=== PATIENT | male | born 1965 | race Caucasian/White ===

== ENCOUNTER 2017-11-15 18:05 | Emergency (ER) | payer SELFPAY ==
[2017-11-15 19:22] LABS: ABSOLUTE BASOPHILS # (AUTO) 0.1 10^3/uL (0.0-0.2); ABSOLUTE EOSINOPHILS # (AUTO) 0.1 10^3/uL (0.0-0.6); ABSOLUTE LYMPHOCYTES (AUTO) 1.2 10^3/uL (0.5-4.7); ABSOLUTE NEUT (AUTO) 11.4 10^3/uL (1.7-8.2); BASOPHILS % (AUTO) 0.8 % (0-2); EOSINOPHILS % (AUTO) 0.7 % (0-6); HEMATOCRIT 29.5 % (37.9-51.0); LYMPHOCYTES % (AUTO) 8.7 % (13-45); MEAN CORPUSCULAR HEMOGLOBIN 33.8 pg (27.0-33.4); MEAN CORPUSCULAR HGB CONC 33.9 g/dL (32.0-36.0); MEAN CORPUSCULAR VOLUME 100 fl (80-97); MONOCYTES % (AUTO) 7.3 % (3-13); PLATELET COUNT 499 10^3/uL (150-450); RED BLOOD COUNT 2.96 10^6/uL (4.35-5.55); RED CELL DISTRIBUTION WIDTH 13.5 % (11.5-14.0); SEGMENTED NEUTROPHILS % (AUTO) 82.5 % (42-78); TOTAL CELLS COUNTED % (AUTO) 100 %; WHITE BLOOD COUNT 13.8 10^3/uL (4.0-10.5)
[2017-11-15 19:43] LABS: ALANINE AMINOTRANSFERASE 37 U/L (21-72); ALBUMIN 3.6 g/dL (3.5-5.0); ALKALINE PHOSPHATASE 108 U/L (38-126); ANION GAP 13 (5-19); ASPARTATE AMINO TRANSFERASE 24 U/L (17-59); BILIRUBIN,DIRECT 0.2 mg/dL (0.0-0.4); BILIRUBIN,TOTAL 0.3 mg/dL (0.2-1.3); BLOOD UREA NITROGEN 17 mg/dL (7-20); CALCIUM 9.3 mg/dL (8.4-10.2); CARBON DIOXIDE 24 mmol/L (22-30); CHLORIDE 102 mmol/L (98-107); CREATINE KINASE 36 U/L (55-170); GLUCOSE 98 mg/dL (75-110); POTASSIUM 3.9 mmol/L (3.6-5.0); SODIUM 138.7 mmol/L (137-145); TOTAL PROTEIN 6.3 g/dL (6.3-8.2)
[2017-11-15 19:54] LABS: CREATINE KINASE MB 0.55 ng/mL (<4.55); TROPONIN I 0.016 ng/mL
--- NOTE | 2017-11-15 20:19 | ER Document Report ---
ED Syncope and Near Syncope - General Chief Complaint: Near Syncope Stated Complaint: WEAKNESS Time Seen by Provider: 11/15/17 19:38 Notes: Patient is a 52-year-old male who presents emergency department with a chief complaint of syncope earlier today. His family at the bedside states that he is recently discharged from [facility] about a week and half ago and is trying to get back to his home activities and he was walking from his house to his dad' s house when he passed out for about 2-3 minutes. At this time he denies any headache, dizziness, chest pain, shortness of breath, cough, fever chills nausea , vomiting, abdominal pain, diarrhea, constipation, vision changes, numbness or tingling, back pain. Patient does have a very significant past medical history. Patient's initially had a STEMI on September 10 where he had a stent placed to [facility] at that time he was diagnosed with mouth cancer. States about 2 weeks ago he had a resection done by Dr. Price with ear nose and throat at [facility]. He was recently discharged a week and a half ago and has been home ever since. He states that he has been caring for the wound on his right thigh where they did a graft for his new tongue. He states that there has been purulent drainage from this area and it has been sore. He states the drainage started a couple of days after he left the hospital. He did follow up with Dr. Price is partner on Sunday and was referred to nutrition given his recent weight loss over the past couple months. Patient states that since his hospitalization for his heart attack is probably lost approximately 30-40 pounds. He is still not taking anything p.o. as his grafts heal any his primary source of nutrition his tube feeds. Patient states that he has not had a stress test and cath was done in September. 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 yanez, cylinder inspector and tester with He is due to follow-up with your nose and throat on Sunday and with his cylinder inspector and tester on December 20 His home medications include oxycodone 5 mg syrup, metoprolol 25 mg, nitro as needed, baby aspirin, lisinopril 2.5 mg daily, atorvastatin, Plavix 75 mg - Related Data Allergies/Adverse Reactions: No Known Allergies Allergy (Unverified 11/15/17 19:36) Home Medications: Current Home Medications Atorvastatin Calcium 80 mg PEG DAILY 11/16/17 [History] Chlorhexidine Gluconate [Peridex 0.12% Oral Rinse 60 ml] 15 ml MM BID 11/16/17 [ History] Clopidogrel Bisulfate [Clopidogrel] 75 mg PEG DAILY 11/16/17 [History] Lisinopril [Zestril] 2.5 mg PEG DAILY 11/16/17 [History] Metoprolol Tartrate 25 mg PEG BID 11/16/17 [History] Nitroglycerin [Nitrostat] 0.4 mg SL Q5MP PRN MDD 3 11/16/17 [History] Nutritional Supplement [Osmolite 1.5 Samuel] 237 ml PEG QID 11/16/17 [History] Oxycodone HCl 5 mg PEG 5XD 11/16/17 [History] Past Medical History - Social History Smoking Status: Former Smoker Drug Abuse: Marijuana Family History: Reviewed & Not Pertinent Patient has suicidal ideation: No Patient has homicidal ideation: No Renal/ Medical History: Denies: Hx Peritoneal Dialysis Review of Systems - Review of Systems Constitutional: No symptoms reported EENT: See HPI Cardiovascular: No symptoms reported Respiratory: No symptoms reported Gastrointestinal: No symptoms reported Musculoskeletal: See HPI Hematologic/Lymphatic: See HPI Neurological/Psychological: See HPI -: Yes All other systems reviewed and negative Physical Exam - Vital signs Vitals: Resp Pulse Ox 16 100 11/15/17 18:24 11/15/17 18:24 - Notes Notes: PHYSICAL EXAM GENERAL: Alert, interacts well. Thin cachectic HEAD: Normocephalic, atraumatic. EYES: Pupils equal, round, and reactive to light. Extraocular movements intact. ENT: Patient's airway is clear with tongue graft with epithelialization and no purulent drainage oral mucosa moist, tongue midline. NECK: Full range of motion. Supple. Trachea midline. Trach site healing well without any present drainage incision that extends from across is not covered in Dermabond without any tenderness, induration or cellulitis, dehiscence LUNGS: Clear to auscultation bilaterally, no wheezes, rales, or rhonchi. No respiratory distress. HEART: Regular rate and rhythm. No murmurs, gallops, or rubs. ABDOMEN: Soft, nondistended, nontender. No guarding, rebound, or rigidity.. Bowel sounds present in all 4 quadrants. EXTREMITIES: Moves all 4 extremities spontaneously. No edema, radial and dorsalis pedis pulses 2/4 bilaterally. No cyanosis. NEUROLOGICAL: Alert and oriented x4. Normal speech. PSYCH: Normal affect, normal mood. SKIN: Warm, dry, right thigh with incision from the ASIS down to just above the knee with some sutures still in place purulent drainage with palpation of the site and tenderness palpation no surrounding erythema. Course - Re-evaluation Re-evalutation: 11/05 11/22 020:30 Patient is a 52-year-old male who is hemodynamically stable, no acute distress and afebrile. EKG without any significant evidence of a STEMI. CBC with mild elevation of white blood cells and hemoglobin of 10 showing mild anemia. Chemistry stable with negative troponin. 11/16/17 00:30 patient's blood pressures in the 80s but he denies any dizziness, weakness. Orthostatics are negative. Patient to receive more IV fluids and we are waiting to hear from your nose and throat at [facility]. Given recent patient' s surgical history and hypertension will send for a CTA to rule out PE. We will also send a stool occult to rule out any GI bleed given anemia and hypotension. 11/16/17 03:30 CTA is negative for any evidence of a PE, stool occult was negative. Consult with ear nose and throat and [facility] still pending 11/16/17 04:30 Ear nose and throat credit relationship manager attending Dr. Pratt states that these labs are improved from his discharge. He was recently evaluated on Sunday. he has requested that at the bedside some sutures are removed and the wound cleaned and dry sterile dressing applied and will follow up with him in his clinic at 10 AM at [facility]. Patient's blood pressure has improved after another liter of fluid. Patient is able to ambulate in the department without any dizziness or weakness. He states that he is hungry and does want to go home so he can get a tube feed done before going down to [facility]. 11/16/17 07:39 Patients dad at the bedside reviewed with him the plan is agreeable to take him to [facility] at approximately 10 AM today. Discussed with him strict return precautions if they are not able to be evaluated by him/possible recommendation to stay in the emergency department as needed. - Vital Signs Vital signs: Temp Pulse Resp BP Pulse Ox 99 F 71 14 119/63 99 11/16/17 07:01 11/15/17 20:43 11/16/17 07:01 11/16/17 07:00 11/16/17 07:01 - Laboratory Result Diagrams: 11/15/17 18:50 11/15/17 18:50 Laboratory results interpreted by me: 11/15/17 11/15/17 11/15/17 18:50 18:50 20:35 WBC 13.8 H RBC 2.96 L Hgb 10.0 L Hct 29.5 L MCV 100 H MCH 33.8 H Plt Count 499 H Seg Neutrophils % 82.5 H Lymphocytes % 8.7 L Absolute Neutrophils 11.4 H Lactic Acid Creatine Kinase 36 L Urine Ketones 20 H Urine Urobilinogen 2.0 H Ur Leukocyte Esterase TRACE H Urine Ascorbic Acid 40 H 11/16/17 01:48 WBC RBC Hgb Hct MCV MCH Plt Count Seg Neutrophils % Lymphocytes % Absolute Neutrophils Lactic Acid 0.6 L Creatine Kinase Urine Ketones Urine Urobilinogen Ur Leukocyte Esterase Urine Ascorbic Acid - Diagnostic Test Radiology reviewed: Image reviewed, Reports reviewed - EKG Interpretation by Me EKG shows normal: Sinus rhythm Rate: Normal Rhythm: NSR When compared to previous EKG there are: Previous EKG unavailable Discharge - Discharge Clinical Impression: Syncope Qualifiers: Syncope type: unspecified Qualified Code(s): R55 - Syncope and collapse Wound infection after surgery Qualifiers: Encounter type: initial encounter Qualified Code(s): T81.4XXA - Infection following a procedure, initial encounter Condition: Stable Disposition: HOME, SELF-CARE Instructions: Syncopal Episode ([facility]) Additional Instructions: Your leg is concerning for infection. You need to follow up with Dr. Pratt with [facility] ear, nose and throat surgery today at 10am in [place] regarding your visit to the ER
[2017-11-15 21:29] LABS: APPEARANCE,URINE SLIGHTLY-CLOUDY; BILIRUBIN,URINE NEGATIVE (NEGATIVE); COLOR,URINE AMBER; GLUCOSE, URINE NEGATIVE (NEGATIVE); KETONES,URINE 20 mg/dL (NEGATIVE); LEUKOCYTE ESTERASE,URINE TRACE (NEGATIVE); NITRITE,URINE NEGATIVE (NEGATIVE); PROTEIN,URINE NEGATIVE (NEGATIVE); URINE SPECIFIC GRAVITY 1.029
[2017-11-16] MEDS ORDERED: NORMAL SALINE 1000 ML 1,000 ML IV ONE ×3 (00:45→04:30)
--- NOTE | 2017-11-16 03:26 | RADIOLOGY REPORT (SQ) ---
EXAM DESCRIPTION: CTA of the chest per PE protocol with contrast. CLINICAL HISTORY: hypotension, recent surgery COMPARISON: None Available. TECHNIQUE: CTA of the chest obtained following the uncomplicated intravenous administration of iodinated contrast. 3-D/MIP reformatted images of the chest available for evaluation. FINDINGS: Chest: Mediastinal windows demonstrate an excellent contrast bolus. No pulmonary embolus identified. Visualized thyroid gland is unremarkable. Great vessels have normal anatomic configuration. No cardiomegaly, coronary artery atherosclerosis, or significant pericardial effusion. No abnormalities of the esophagus. Scattered mediastinal lymph nodes are not enlarged by CT criteria. Lung windows demonstrate no consolidation, pneumothorax, or pleural effusion. Minimal bilateral dependent atelectasis. No abnormalities of the visualized trachea or airways. Limited images of the upper abdomen demonstrate no abnormalities of the visualized liver, spleen, pancreas, adrenal glands, gallbladder, or kidneys. No destructive osseous lesions. DLP: 462.35 mGycm IMPRESSION: 1. No pulmonary embolus identified. This exam was performed according to our departmental dose-optimization program, which includes automated exposure control, adjustment of the mA and/or kV according to patient size and/or use of iterative reconstruction technique.
[2017-11-16 07:25] VITALS: BP 119/63
--- NOTE | 2017-11-16 07:56 | EKG REPORT ---
SEVERITY:- BORDERLINE ECG - SINUS RHYTHM BORDERLINE T ABNORMALITIES, DIFFUSE LEADS : Confirmed by: Steve Higgins MD 16-Nov-2017 07:55:42
== END 2017-11-16 07:20 | disposition home or self-care (01) ==
LOC: ER 18:05
DX: R55 Syncope and collapse (principal); T81.4XXA Infection following a procedure, initial encounter; Y83.6 Removal of other organ (partial) (total) as the cause of abnormal reaction of the patient, or of later complication, without mention of misadventure at the time of the procedure; D64.9 Anemia, unspecified; I25.10 Atherosclerotic heart disease of native coronary artery without angina pectoris; I10 Essential (primary) hypertension; E78.5 Hyperlipidemia, unspecified; I25.2 Old myocardial infarction; F12.10 Cannabis abuse, uncomplicated; Z87.891 Personal history of nicotine dependence; Z79.899 Other long term (current) drug therapy; Z79.02 Long term (current) use of antithrombotics/antiplatelets; Z79.82 Long term (current) use of aspirin; Z95.5 Presence of coronary angioplasty implant and graft; Z90.09 Acquired absence of other part of head and neck; Z85.819 Personal history of malignant neoplasm of unspecified site of lip, oral cavity, and pharynx; Z48.02 Encounter for removal of sutures
CPT/HCPCS: 93005; 99285; 96360; 96361; 36415; 87040; 87070; 87205; 82553; 82550; 85025; 82272; 87077; 80053; 81001; 84484; 87186; 83605; 71275; 93010; J7030

== ENCOUNTER 2018-07-29 19:11 | Emergency (ER) | payer MEDICAID ==
[2018-07-29 19:21] VITALS: BP 110/64
[2018-07-29] MEDS ORDERED: RINGERS SOLUTION,LACTATED 1,000 ML IV ONE (21:08)
--- NOTE | 2018-07-29 21:09 | ER Document Report ---
ED General - General Chief Complaint: Low Blood Pressure Stated Complaint: POSSIBLE SYNCOPE Time Seen by Provider: 07/29/18 20:58 Mode of Arrival: Wheelchair Information source: Patient Notes: Patient is a 53 year old male with oral cancer presents to the emergency department via EMS due to a near syncopal event. Patient states he has been feeling fatigued and weak today and when walking from his bedroom he fell to the floor. Daughter at bedside states she saw him fall and reports the patient was unresponsive and his eyes rolled to the back of his head. Patient states he had a similar episode in the 3-4 months ago and reported his blood sugar was low then. EMS reports a blood pressure of 58 palpated and heart rate of 46 and proceeded to give 700ml normal saline which improved the blood pressure to 111/75. Patient also mentions having some mouth pain and not taking his blood thinner medication for approximately 1 week. He states he has only been treated with radiation with his last treatment being in January 2018. GENERAL: Alert, appears cachetic. HEAD: Normocephalic, Atraumatic. NECK: Full range of motion. Supple. Trachea midline. LUNGS: Clear to auscultation bilaterally, no wheezes, rales, or rhonchi. No respiratory distress. HEART: Regular rate and rhythm. No murmurs, gallops, or rubs. ABDOMEN: Soft, non-tender. Non-distended. Bowel sounds present in all 4 quadrants. EXTREMITIES: Moves all four extremities spontaneously. PSYCH: Normal affect, normal mood. I have greeted and performed a rapid initial assessment of this patient. A comprehensive ED assessment and evaluation of the patient, analysis of test results and completion of the medical decision making process will be conducted by additional ED providers. TRAVEL OUTSIDE OF THE [place] IN LAST 30 DAYS: No - Related Data Allergies/Adverse Reactions: No Known Allergies Allergy (Verified 07/29/18 19:13) Past Medical History - Social History Smoking Status: Current Every Day Smoker Chew tobacco use (# tins/day): No Frequency of alcohol use: Social Drug Abuse: None Family History: Reviewed & Not Pertinent Patient has suicidal ideation: No Patient has homicidal ideation: No - Past Medical History Cardiac Medical History: Reports: Hx Heart Attack, Hx Hypertension Renal/ Medical History: Denies: Hx Peritoneal Dialysis Past Surgical History: Reports: Hx Oral Surgery - Tongue cancer removed, Hx Vascular Surgery - Stents Physical Exam - Vital signs Vitals: Temp Pulse Resp BP Pulse Ox 97.3 F 72 16 110/64 99 07/29/18 19:19 07/29/18 19:19 07/29/18 19:19 07/29/18 19:19 07/29/18 19:19 Course - Vital Signs Vital signs: Temp Pulse Resp BP Pulse Ox 97.3 F 72 16 110/64 99 07/29/18 19:19 07/29/18 19:19 07/29/18 19:19 07/29/18 19:19 07/29/18 19:19 Discharge - Discharge Referrals: WARNER MAURICIO PA-C [Primary Care Provider] - Follow up as needed
[2018-07-29] MEDS ORDERED: NORMAL SALINE INJ/PF 0.9% 10 ML SDV IV ONE (21:13)
[2018-07-29 21:38] LABS: HEMATOCRIT 38.4 % (37.9-51.0); HEMOGLOBIN 13.4 g/dL (13.5-17.0); MEAN CORPUSCULAR HEMOGLOBIN 35.3 pg (27.0-33.4); MEAN CORPUSCULAR HGB CONC 34.8 g/dL (32.0-36.0); MEAN CORPUSCULAR VOLUME 102 fl (80-97); PLATELET COUNT 333 10^3/uL (150-450); RED BLOOD COUNT 3.79 10^6/uL (4.35-5.55); RED CELL DISTRIBUTION WIDTH 12.5 % (11.5-14.0); WHITE BLOOD COUNT 12.5 10^3/uL (4.0-10.5)
[2018-07-29 21:43] LABS: APPEARANCE,URINE SLIGHTLY-CLOUDY; BILIRUBIN,URINE NEGATIVE (NEGATIVE); COLOR,URINE YELLOW; GLUCOSE, URINE NEGATIVE (NEGATIVE); KETONES,URINE TRACE mg/dL (NEGATIVE); LEUKOCYTE ESTERASE,URINE NEGATIVE (NEGATIVE); NITRITE,URINE NEGATIVE (NEGATIVE); PROTEIN,URINE 30 mg/dL (NEGATIVE); URINE SPECIFIC GRAVITY 1.017; UROBILINOGEN,URINE NEGATIVE mg/dL (<2.0)
[2018-07-29 21:47] LABS: INTERNATIONAL RATION (INR) 0.96; PROTHROMBIN TIME 13.3 SEC (11.4-15.4)
--- NOTE | 2018-07-29 21:54 | EKG REPORT ---
SEVERITY:- ABNORMAL ECG - SINUS RHYTHM NONSPECIFIC T ABNORMALITIES, DIFFUSE LEADS : Confirmed by: Bianka Ferraro MD 29-Jul-2018 21:54:05
[2018-07-29 22:01] LABS: ALANINE AMINOTRANSFERASE 33 U/L (21-72); ALBUMIN 3.5 g/dL (3.5-5.0); ALKALINE PHOSPHATASE 96 U/L (38-126); ASPARTATE AMINO TRANSFERASE 26 U/L (17-59); BILIRUBIN,DIRECT 0.5 mg/dL (0.0-0.4); BILIRUBIN,TOTAL 0.6 mg/dL (0.2-1.3); BLOOD UREA NITROGEN 15 mg/dL (7-20); CALCIUM 9.1 mg/dL (8.4-10.2); GLUCOSE 112 mg/dL (75-110); POTASSIUM 4.5 mmol/L (3.6-5.0); TOTAL PROTEIN 6.5 g/dL (6.3-8.2)
--- NOTE | 2018-07-29 22:01 | ER Document Report ---
ED Medical Screen (RME) - General Chief Complaint: Low Blood Pressure Stated Complaint: POSSIBLE SYNCOPE Time Seen by Provider: 07/29/18 20:58 Mode of Arrival: Wheelchair Information source: Patient Notes: Patient is a 53 year old male with oral cancer presents to the emergency department via EMS due to a near syncopal event. Patient states he has been feeling fatigued and weak today and when walking from his bedroom he fell to the floor. Daughter at bedside states she saw him fall and reports the patient was unresponsive and his eyes rolled to the back of his head. Patient states he had a similar episode in the 3-4 months ago and reported his blood sugar was low then. Patient denies vomiting, diarrhea, chest pain or recent illnesses. EMS reports a blood pressure of 58 palpated and heart rate of 46 and proceeded to give 700ml normal saline which improved the blood pressure to 111/75. Patient also mentions having some mouth pain and not taking his blood thinner medication for approximately 1 week. He states he has only been treated with radiation with his last treatment being in January 2018. GENERAL: Alert, appears cachetic. HEAD: Normocephalic, Atraumatic. NECK: Full range of motion. Supple. Trachea midline. LUNGS: Clear to auscultation bilaterally, no wheezes, rales, or rhonchi. No respiratory distress. HEART: Regular rate and rhythm. No murmurs, gallops, or rubs. ABDOMEN: Soft, non-tender. Non-distended. Bowel sounds present in all 4 quadrants. EXTREMITIES: Moves all four extremities spontaneously. PSYCH: Normal affect, normal mood. I have greeted and performed a rapid initial assessment of this patient. A comprehensive ED assessment and evaluation of the patient, analysis of test results and completion of the medical decision making process will be conducted by additional ED providers. TRAVEL OUTSIDE OF THE [place] IN LAST 30 DAYS: No - Related Data Allergies/Adverse Reactions: No Known Allergies Allergy (Verified 07/29/18 19:13) Past Medical History - General Information source: Patient - Social History Chew tobacco use (# tins/day): No Frequency of alcohol use: Social Drug Abuse: None - Past Medical History Cardiac Medical History: Reports: Hx Heart Attack, Hx Hypertension Past Surgical History: Reports: Hx Oral Surgery - Tongue cancer removed, Hx Vascular Surgery - Stents Physical Exam - Vital signs Vitals: Temp Pulse Resp BP Pulse Ox 97.3 F 72 16 110/64 99 07/29/18 19:19 07/29/18 19:19 07/29/18 19:19 07/29/18 19:19 07/29/18 19:19 Course - Vital Signs Vital signs: Temp Pulse Resp BP Pulse Ox 97.3 F 72 16 110/64 99 07/29/18 19:19 07/29/18 19:19 07/29/18 19:19 07/29/18 19:19 07/29/18 19:19 - Laboratory Result Diagrams: 07/29/18 21:25 07/29/18 21:25 Laboratory results interpreted by me: 07/29/18 07/29/18 21:25 21:25 WBC 12.5 H RBC 3.79 L Hgb 13.4 L MCV 102 H MCH 35.3 H Seg Neuts % (Manual) 83 H Lymphocytes % (Manual) 7 L Abs Neuts (Manual) 10.4 H Urine Protein 30 H Urine Ketones TRACE H Urine Ascorbic Acid 40 H Doctor's Discharge - Discharge Referrals: WARNER MAURICIO PA-C [Primary Care Provider] - Follow up as needed
[2018-07-29 22:05] LABS: ABSOLUTE LYMPHOCYTES# (MANUAL) 0.9 10^3/uL (0.5-4.7); ABSOLUTE MONOCYTES # (MANUAL) 0.9 10^3/uL (0.1-1.4); ABSOLUTE NEUTROPHILS# (MANUAL) 10.4 10^3/uL (1.7-8.2); BASOPHILS % (MANUAL) 0 % (0-2); EOSINOPHILS % (MANUAL) 3 % (0-6); LYMPHOCYTES % (MANUAL) 7 % (13-45); MONOCYTES % (MANUAL) 7 % (3-13); PLATELET COMMENT ADEQUATE; RBC MORPHOLOGY COMMENT NORMO-CYTIC/CHROMIC; SEGMENTED NEUTROPHILS % (MAN) 83 % (42-78); TOTAL CELLS COUNTED 100
[2018-07-29 22:08] LABS: ANION GAP 5 (5-19); CARBON DIOXIDE 27 mmol/L (22-30); CHLORIDE 103 mmol/L (98-107)
--- NOTE | 2018-07-29 22:41 | ER Document Report ---
ED General - General TRAVEL OUTSIDE OF THE [place] IN LAST 30 DAYS: No <LISY MADRIGAL - Last Filed: 07/29/18 22:56> <ORLANDO VARGAS - Last Filed: 07/30/18 14:41> - General Chief Complaint: Low Blood Pressure Stated Complaint: POSSIBLE SYNCOPE Time Seen by Provider: 07/29/18 20:58 Notes: Patient is a 53 year old male with oral cancer presents to the emergency department via EMS due to a near syncopal event. Patient states he has been feeling fatigued and weak today and when walking from his bedroom he fell to the floor. Daughter at bedside states she saw him fall and reports the patient' s eyes rolled to the back of his head and he would not respond to any auditory stimuli further stating the patient did not fully loose consciousness. Patient states he had a similar episode the 3-4 months ago and reported his blood sugar was low then. Patient denies vomiting, diarrhea, chest pain or recent illnesses. EMS reports a blood pressure of 58 palpated and heart rate of 46 and proceeded to give 700ml normal saline which improved the blood pressure to 111/75. Patient also mentions having some mouth pain and not taking his blood thinner medication for approximately 1 week. He states he has only been treated with radiation with his last treatment being in January 2018. (LISY MADRIGAL) - Related Data Allergies/Adverse Reactions: No Known Allergies Allergy (Verified 07/29/18 19:13) Past Medical History - Social History Smoking Status: Current Every Day Smoker Chew tobacco use (# tins/day): No Frequency of alcohol use: Social Drug Abuse: None Family History: Reviewed & Not Pertinent Patient has suicidal ideation: No Patient has homicidal ideation: No - Past Medical History Cardiac Medical History: Reports: Hx Heart Attack, Hx Hypertension Renal/ Medical History: Denies: Hx Peritoneal Dialysis Past Surgical History: Reports: Hx Oral Surgery - Tongue cancer removed, Hx Vascular Surgery - Stents <LISY MADRIGAL - Last Filed: 07/29/18 22:56> Review of Systems - Review of Systems Constitutional: See HPI EENT: No symptoms reported Cardiovascular: See HPI Respiratory: No symptoms reported Gastrointestinal: No symptoms reported Genitourinary: No symptoms reported Male Genitourinary: No symptoms reported Musculoskeletal: No symptoms reported Skin: No symptoms reported Hematologic/Lymphatic: No symptoms reported Neurological/Psychological: No symptoms reported -: Yes All other systems reviewed and negative <LISY MADRIGAL - Last Filed: 07/29/18 22:56> Physical Exam <LISY MADRIGAL - Last Filed: 07/29/18 22:56> <ORLANDO VARGAS Marcos - Last Filed: 07/30/18 14:41> - Vital signs Vitals: Temp Pulse Resp BP Pulse Ox 97.3 F 72 16 110/64 99 07/29/18 19:19 07/29/18 19:19 07/29/18 19:19 07/29/18 19:19 07/29/18 19:19 - Notes Notes: GENERAL: Alert, appears cachetic. HEAD: Normocephalic, Atraumatic. NECK: Full range of motion. Supple. Trachea midline. LUNGS: Clear to auscultation bilaterally, no wheezes, rales, or rhonchi. No respiratory distress. HEART: Regular rate and rhythm. No murmurs, gallops, or rubs. ABDOMEN: Soft, non-tender. Non-distended. Bowel sounds present in all 4 quadrants. EXTREMITIES: Moves all four extremities spontaneously. PSYCH: Normal affect, normal mood. . (LISY MADRIGAL) Course - Laboratory Result Diagrams: 07/29/18 21:25 07/29/18 21:25 <LISY MADRIGAL - Last Filed: 07/29/18 22:56> - Laboratory Result Diagrams: 07/29/18 21:25 07/29/18 21:25 - EKG Interpretation by Me EKG shows normal: Sinus rhythm Rate: Normal Rhythm: NSR - No significant changes from 11/2017. <ORLANDO VARGAS Marcos - Last Filed: 07/30/18 14:41> - Re-evaluation Re-evalutation: 07/29/18 22:40 Patient stated he felt better and would like to go home. (LISY MADRIGAL) 07/29/18 22:42 Went on into triage and discussed with patient labs all within normal limits nonsignificant well is no changes in EKG from previous. Patient states that he has had these type of episodes in the past. He states that he is feeld better after his fluids. He did have dry oral mucous membrane upon arrival. I advised patient to continue to take his tube feedings as prescribed by his physician as well as encourage oral hydration with liquids. I also advised he needs to take all of his medications as prescribed, including his Plavix. I suspect patient suffering dehydration as his blood pressure normalized with fluids. His troponin was negative and he denied any chest pain at any time at home or in the ED. Due to multiple medical probelems I did discuss consideration of inpatient observation, but patient declined. 07/30/18 14:39 (ORLANDO VARGAS) - Vital Signs Vital signs: Temp Pulse Resp BP Pulse Ox 97.3 F 72 16 110/64 99 07/29/18 19:19 07/29/18 19:19 07/29/18 19:19 07/29/18 19:19 07/29/18 19:19 - Laboratory Laboratory results interpreted by me: 07/29/18 07/29/18 07/29/18 21:25 21:25 21:25 WBC 12.5 H RBC 3.79 L Hgb 13.4 L MCV 102 H MCH 35.3 H Seg Neuts % (Manual) 83 H Lymphocytes % (Manual) 7 L Abs Neuts (Manual) 10.4 H Sodium 135.0 L Glucose 112 H Direct Bilirubin 0.5 H Urine Protein 30 H Urine Ketones TRACE H Urine Ascorbic Acid 40 H Discharge <LISY MADRIGAL - Last Filed: 07/29/18 22:56> <ORLANDO VARGAS - Last Filed: 07/30/18 14:41> - Discharge Condition: Good Disposition: HOME, SELF-CARE Instructions: Dehydration ([facility]), Near Syncopal Episode ([facility]) Referrals: WARNER MAURICIO PA-C [Primary Care Provider] - Follow up as needed (In 2-3 days for re-evaluation) Scribe Attestation: 07/30/18 14:41 I personally performed the services described in the documentation, reviewed and edited the documentation which was dictated to the scribe in my presence, and it accurately records my words and actions. (ORLANDO VARGAS) Scribe Documentation - Scribe Written by Dedrick:: Dedrick Ferreira, 07/29/2018 22:49 acting as scribe for :: Gabriel <LISY MADRIGAL - Last Filed: 07/29/18 22:56>
== END 2018-07-29 23:16 | disposition home or self-care (01) ==
LOC: ER 19:11
DX: R55 Syncope and collapse (principal); R53.83 Other fatigue; K13.79 Other lesions of oral mucosa; F17.200 Nicotine dependence, unspecified, uncomplicated; I25.2 Old myocardial infarction; I10 Essential (primary) hypertension
CPT/HCPCS: 36415; 80053; 81001; 83735; 84484; 85025; 85610; 93005; 93010; 99285

== ENCOUNTER 2018-08-06 21:06 | Emergency (ER) | payer MEDICAID ==
[2018-08-06] MEDS ORDERED: NORMAL SALINE 1000 ML 1,000 ML IV ONE (21:41)
[2018-08-06 22:06] LABS: ABSOLUTE BASOPHILS # (AUTO) 0.1 10^3/uL (0.0-0.2); ABSOLUTE EOSINOPHILS # (AUTO) 0.1 10^3/uL (0.0-0.6); ABSOLUTE LYMPHOCYTES (AUTO) 0.6 10^3/uL (0.5-4.7); ABSOLUTE NEUT (AUTO) 10.6 10^3/uL (1.7-8.2); EOSINOPHILS % (AUTO) 0.9 % (0-6); HEMATOCRIT 36.8 % (37.9-51.0); HEMOGLOBIN 12.8 g/dL (13.5-17.0); LYMPHOCYTES % (AUTO) 5.1 % (13-45); MEAN CORPUSCULAR HEMOGLOBIN 35.1 pg (27.0-33.4); MEAN CORPUSCULAR HGB CONC 34.8 g/dL (32.0-36.0); MEAN CORPUSCULAR VOLUME 101 fl (80-97); MONOCYTES % (AUTO) 8.2 % (3-13); PLATELET COUNT 325 10^3/uL (150-450); RED BLOOD COUNT 3.65 10^6/uL (4.35-5.55); SEGMENTED NEUTROPHILS % (AUTO) 84.8 % (42-78); TOTAL CELLS COUNTED % (AUTO) 100 %; WHITE BLOOD COUNT 12.6 10^3/uL (4.0-10.5)
--- NOTE | 2018-08-06 22:22 | RADIOLOGY REPORT (SQ) ---
PROCEDURE: XR CHEST 1 VIEW HISTORY: syncope COMPARISON: None TECHNIQUE: The study was done on 08/06/2018 at 9:52 PM Single projection of the chest was done. FINDINGS: There are underlying changes of COPD . There are no discrete airspace infiltrates, pneumothoraces or pleural effusions. The pulmonary vascularity is normal. The cardiomediastinal silhouette is unremarkable for patient's age and sex. IMPRESSION: There is no acute pleural-parenchymal process seen in the imaged lung rob. Location of Interpretation: [facility]
[2018-08-06] MEDS ORDERED: LIDOCAINE 2% VISCOUS SOLN 20 ML UDCUP PO ONE (22:25)
[2018-08-06 22:30] LABS: ALANINE AMINOTRANSFERASE 38 U/L (21-72); ALBUMIN 3.4 g/dL (3.5-5.0); ALKALINE PHOSPHATASE 108 U/L (38-126); ANION GAP 7 (5-19); ASPARTATE AMINO TRANSFERASE 30 U/L (17-59); BILIRUBIN,DIRECT 0.3 mg/dL (0.0-0.4); BILIRUBIN,TOTAL 0.5 mg/dL (0.2-1.3); BLOOD UREA NITROGEN 19 mg/dL (7-20); CALCIUM 8.9 mg/dL (8.4-10.2); CARBON DIOXIDE 26 mmol/L (22-30); CHLORIDE 105 mmol/L (98-107); CREATINE KINASE 29 U/L (55-170); GLUCOSE 115 mg/dL (75-110); SODIUM 138.2 mmol/L (137-145); TOTAL PROTEIN 6.3 g/dL (6.3-8.2)
[2018-08-06 22:45] LABS: TROPONIN I < 0.012 ng/mL
--- NOTE | 2018-08-06 23:11 | ER Document Report ---
ED General - General Chief Complaint: Passed Out Prior to Arrival Stated Complaint: SYNCOPE Time Seen by Provider: 08/06/18 21:10 Notes: Patient is a 53-year-old male that presents to the emergency department for chief complaint of syncopal episode. Patient states that just prior to ED arrival, the patient was walking in the living room, and started feeling lightheaded and had mild nausea, and then had a syncopal episode. Family was there, he did not strike his head, he slowly went down. He had an episode similar to this about a week ago, he was seen in the emergency department at that time and discharged home. Patient has been having lower blood pressures, and at that time he was hypotensive when EMS arrived and bradycardic. Patient has had weight loss, due to decreased p.o. intake, he does have a PEG tube, which he has not been giving himself the full amount of tube feed which she is supposed to receive. He supposed to be getting 6 cans daily, but has only been giving himself 4 cans, and thus having a decreased amount of water flushes as well. And he has been continued to take his normal blood pressure medication at its dose. He does take metoprolol 25 mg twice daily. He has a history of oral cancer, and that is why he has the PEG tube. Past Medical History: Oral carcinoma, status post tongue resection Past Surgical History: Tongue resection, and flap replacement Social History: Admits to smoking cigarettes, denies alcohol or drug use. Family History: Reviewed and noncontributory for presenting illness Allergies: Reviewed, see documented allergy list. REVIEW OF SYSTEMS: Unless otherwise stated in this report the patient's positive and negative responses for review of systems for constitutional, eyes, ENT, cardiovascular, respiratory, gastrointestinal, neurological, genitourinary, musculoskeletal, and integumentary systems and related systems to the presenting problem are either as stated in the HPI or were not pertinent or were negative for the symptoms and/or complaints related to the presenting medical problem. PHYSICAL EXAMINATION: Vital signs reviewed, nursing noted reviewed. GENERAL: Frail appearing male, no acute distress HEAD: Atraumatic, normocephalic. EYES: Eyes appear normal, extraocular movements intact, sclera anicteric, conjunctiva are normal. ENT: nares patent, oropharynx clear without exudates. Dry mucous membranes NECK: Normal range of motion, supple without lymphadenopathy LUNGS: Breath sounds clear to auscultation bilaterally and equal. No wheezes rales or rhonchi. HEART: Regular rate and rhythm without murmurs ABDOMEN: Soft, PEG tube in place, no erythema or evidence of infection, nontender, normoactive bowel sounds. No rebound, guarding, or rigidity. No masses appreciated. EXTREMITIES: Nontender, good range of motion, no pitting or edema. NEUROLOGICAL: No focal neurological deficits. Moves all extremities spontaneously Motor and sensory grossly intact on exam. PSYCH: Normal mood, normal affect. SKIN: Warm, Dry, normal turgor, no rashes or lesions noted on exposed skin TRAVEL OUTSIDE OF THE [place] IN LAST 30 DAYS: No - Related Data Allergies/Adverse Reactions: No Known Allergies Allergy (Verified 07/29/18 19:13) Past Medical History - Social History Smoking Status: Unknown if Ever Smoked Family History: Reviewed & Not Pertinent Patient has suicidal ideation: No Patient has homicidal ideation: No - Past Medical History Cardiac Medical History: Reports: Hx Heart Attack, Hx Hypertension Renal/ Medical History: Denies: Hx Peritoneal Dialysis Past Surgical History: Reports: Hx Oral Surgery - Tongue cancer removed, Hx Vascular Surgery - Stents Physical Exam - Vital signs Vitals: Pulse Ox 96 08/06/18 21:16 Course - Re-evaluation Re-evalutation: Patient seen and examined vital signs reviewed. Laboratory data and imaging were ordered as appropriate for the patient's presenting symptoms and complaint, with consideration of any critical or life threatening conditions that may be associated with their obtained history and exam as noted above. Patient was treated with IV fluids, given viscous lidocaine for his mouth Results were reviewed when available and demonstrated troponin, EKG was unchanged, chest x-ray negative, anemia at his baseline, he did have a mild leukocytosis, no evidence of infection The patient was re-evaluated and was stable, blood pressure was borderline, 116 systolic, I discussed at length with him, that he needs to give himself the scheduled and prescribed tube feedings, and he needs a follow-up with oral surgeon this upcoming , so advised that he needs to decrease his blood pressure medication to 12-1/2 mg twice daily with his metoprolol, as I think this is contributing to the patient's syncopal episodes. Evaluation was most consistent with syncopal episode, orthostasis most likely cause Results were discussed with the patient at this point, after careful consideration I feel that that patient can be discharged from the emergency department, the patient was educated treatments and reasons to return to the emergency department based on their presumed diagnosis as noted above, they were advised to followup with a primary care physician in 2-3 days. Patient was agreeable to plan of care. *Note is created using voice recognition software and may contain spelling, syntax or grammatical errors. Laboratory 08/06/18 08/06/18 08/06/18 21:55 21:55 21:55 WBC 12.6 H RBC 3.65 L Hgb 12.8 L Hct 36.8 L MCV 101 H MCH 35.1 H MCHC 34.8 RDW 12.0 Plt Count 325 Seg Neutrophils % 84.8 H Lymphocytes % 5.1 L Monocytes % 8.2 Eosinophils % 0.9 Basophils % 1.0 Absolute Neutrophils 10.6 H Absolute Lymphocytes 0.6 Absolute Monocytes 1.0 Absolute Eosinophils 0.1 Absolute Basophils 0.1 Sodium 138.2 Potassium 4.0 Chloride 105 Carbon Dioxide 26 Anion Gap 7 BUN 19 Creatinine 0.61 Est GFR ( Amer) > 60 Est GFR (Non-Af Amer) > 60 Glucose 115 H Calcium 8.9 Total Bilirubin 0.5 Direct Bilirubin 0.3 Neonat Total Bilirubin Not Reportable Neonat Direct Bilirubin Not Reportable Neonat Indirect Bili Not Reportable AST 30 ALT 38 Alkaline Phosphatase 108 Creatine Kinase 29 L CK-MB (CK-2) 1.20 Troponin I < 0.012 Total Protein 6.3 Albumin 3.4 L Chest X-Ray 08/06/18 21:40 IMPRESSION: There is no acute pleural-parenchymal process seen in the imaged lung rob. Location of Interpretation: Teleradiology - Vital Signs Vital signs: Temp Pulse Resp BP Pulse Ox 98 F 13 105/63 100 08/06/18 21:17 08/06/18 23:01 08/06/18 23:01 08/06/18 23:01 - Laboratory Result Diagrams: 08/06/18 21:55 08/06/18 21:55 Laboratory results interpreted by me: 08/06/18 08/06/18 21:55 21:55 WBC 12.6 H RBC 3.65 L Hgb 12.8 L Hct 36.8 L MCV 101 H MCH 35.1 H Seg Neutrophils % 84.8 H Lymphocytes % 5.1 L Absolute Neutrophils 10.6 H Glucose 115 H Creatine Kinase 29 L Albumin 3.4 L - EKG Interpretation by Me Additional EKG results interpreted by me: EKG demonstrates sinus rhythm with a ventricular rate of 81 bpm, normal axis, normal intervals, there is T wave flattening in leads I, aVL and aVF, this compared with prior EKG from 07/29/2018, without significant change. Discharge - Discharge Clinical Impression: Syncope Qualifiers: Syncope type: unspecified Qualified Code(s): R55 - Syncope and collapse Condition: Stable Disposition: HOME, SELF-CARE Instructions: Syncopal Episode ([facility]) Additional Instructions: Please return to the emergency department if you have any worsening, or concern of your symptoms. Please return to the emergency department if you develop chest pain, difficulty breathing, severe abdominal pain, or ongoing vomiting. Please follow-up with your primary care physician in 2-3 days and any other recommended physicians. If prescribed, take all medications as directed. If you have any questions or concerns do not hesitate to return the emergency department for evaluation. Please cut your metoprolol dosing in half to 12.5 mg twice daily. Please follow -up with your primary care physician, and keep your appointment on in [place]. Please use the 6 cans of tube feed daily, as directed before, and continue your free water flushes as previously directed of 120 mL's total with each tube feed. Referrals: [facility] [Provider Group] - Follow up as needed
[2018-08-06 23:18] VITALS: BP 105/63
--- NOTE | 2018-08-07 11:12 | EKG REPORT ---
SEVERITY:- BORDERLINE ECG - SINUS RHYTHM BORDERLINE T ABNORMALITIES, ANT-LAT LEADS : Confirmed by: Bree Roth 07-Aug-2018 11:11:12
== END 2018-08-06 23:40 | disposition home or self-care (01) ==
LOC: ER 21:06
DX: R55 Syncope and collapse (principal); R11.0 Nausea; I10 Essential (primary) hypertension; I25.2 Old myocardial infarction; Z85.810 Personal history of malignant neoplasm of tongue; Z93.4 Other artificial openings of gastrointestinal tract status
CPT/HCPCS: 93005; 99284; 96360; 36415; 82553; 82550; 85025; 80053; 84484; 71045; 93010; J3490

== ENCOUNTER 2018-08-27 20:58 | Observation (INO) | payer MEDICAID ==
[2018-08-27 21:38] LABS: ABSOLUTE EOSINOPHILS # (AUTO) 0.1 10^3/uL (0.0-0.6); ABSOLUTE LYMPHOCYTES (AUTO) 0.6 10^3/uL (0.5-4.7); ABSOLUTE MONOCYTES (AUTO) 0.6 10^3/uL (0.1-1.4); ABSOLUTE NEUT (AUTO) 9.1 10^3/uL (1.7-8.2); BASOPHILS % (AUTO) 0.3 % (0-2); EOSINOPHILS % (AUTO) 0.5 % (0-6); HEMATOCRIT 35.1 % (37.9-51.0); HEMOGLOBIN 12.5 g/dL (13.5-17.0); LYMPHOCYTES % (AUTO) 5.5 % (13-45); MEAN CORPUSCULAR HEMOGLOBIN 35.1 pg (27.0-33.4); MEAN CORPUSCULAR HGB CONC 35.8 g/dL (32.0-36.0); MEAN CORPUSCULAR VOLUME 98 fl (80-97); PLATELET COUNT 363 10^3/uL (150-450); RED BLOOD COUNT 3.58 10^6/uL (4.35-5.55); RED CELL DISTRIBUTION WIDTH 11.9 % (11.5-14.0); SEGMENTED NEUTROPHILS % (AUTO) 87.7 % (42-78); TOTAL CELLS COUNTED % (AUTO) 100 %; WHITE BLOOD COUNT 10.4 10^3/uL (4.0-10.5)
[2018-08-27 21:49] LABS: ALANINE AMINOTRANSFERASE 34 U/L (21-72); ALBUMIN 3.3 g/dL (3.5-5.0); ALKALINE PHOSPHATASE 99 U/L (38-126); ANION GAP 7 (5-19); ASPARTATE AMINO TRANSFERASE 26 U/L (17-59); BILIRUBIN,DIRECT 0.2 mg/dL (0.0-0.4); BILIRUBIN,TOTAL 0.5 mg/dL (0.2-1.3); BLOOD UREA NITROGEN 22 mg/dL (7-20); CARBON DIOXIDE 31 mmol/L (22-30); CHLORIDE 96 mmol/L (98-107); CREATINE KINASE 31 U/L (55-170); GLUCOSE 228 mg/dL (75-110); POTASSIUM 3.8 mmol/L (3.6-5.0); TOTAL PROTEIN 6.1 g/dL (6.3-8.2)
[2018-08-27 22:02] LABS: CREATINE KINASE MB 1.6 ng/mL (<4.55); TROPONIN I 0.017 ng/mL
[2018-08-27] MEDS ORDERED: NORMAL SALINE 1000 ML 1,000 ML IV ONE (23:10)
--- NOTE | 2018-08-27 23:17 | RADIOLOGY REPORT (SQ) ---
EXAM DESCRIPTION: XR CHEST 2 VIEWS COMPLETED DATE/TME: 08/27/2018 22:16 CLINICAL HISTORY: 53 years Male, recurrent syncope COMPARISON: None. FINDINGS: Increased lung volume, clear parenchyma, normal cardiac silhouette, and intact bony thorax. IMPRESSION: No acute cardiopulmonary findings.
--- NOTE | 2018-08-27 23:19 | ER Document Report ---
ED Dizziness/Weakness - General Chief Complaint: Near Syncope Stated Complaint: SYNCOPE Time Seen by Provider: 08/27/18 21:42 Mode of Arrival: Wheelchair TRAVEL OUTSIDE OF THE [place] 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 He notes that he gets lightheaded then upon standing has episodes in which she loses entire consciousness. He is G- tube dependent and is currently being followed for his head and neck cancer but not actively undergoing treatment. Nothing is made his symptoms any better they seem to be getting worse. He is never been evaluated for these before. He denies any history of strokes in the past but does have a history of a stent placed previously in his heart. Does not have any known lung disease. Stop taking all his medications a couple of weeks ago because he says he does not feel like taking them. He has continued to smoke as well. - Related Data Allergies/Adverse Reactions: No Known Allergies Allergy (Verified 07/29/18 19:13) Past Medical History - General Information source: Patient, Relative - Social History Smoking Status: Current Every Day Smoker Chew tobacco use (# tins/day): No Frequency of alcohol use: None Drug Abuse: None Family History: Reviewed & Not Pertinent Patient has suicidal ideation: No Patient has homicidal ideation: No - Past Medical History Cardiac Medical History: Reports: Hx Heart Attack, Hx Hypertension Renal/ Medical History: Denies: Hx Peritoneal Dialysis Past Surgical History: Reports: Hx Oral Surgery - Tongue cancer removed, Hx Vascular Surgery - Stents Review of Systems - Review of Systems -: Yes All other systems reviewed and negative Physical Exam - Vital signs Vitals: Temp Pulse Resp BP Pulse Ox 97.8 F 78 16 118/84 99 08/27/18 21:06 08/27/18 21:06 08/27/18 21:06 08/27/18 21:06 08/27/18 21:06 - General General appearance: Appears well In distress: None - HEENT Head: Normocephalic Eyes: Normal Conjunctiva: Normal Sinus: Normal Nasal: Normal Mouth/Lips: Other - Halitosis, asymmetric tongue with a graft obvious on the right side of the mouth Mucous membranes: Dry Pharynx: Erythema Neck: Other - Markedly erythematous with scattered lesions in the submental space and a woody texture - Respiratory Respiratory status: No respiratory distress Chest status: Nontender Breath sounds: Normal Chest palpation: Normal - Cardiovascular Rhythm: Tachycardia Heart sounds: Normal auscultation Murmur: No - Abdominal Inspection: Other - G-tube in place in the left upper quadrant Tenderness: Nontender - Back Back: Normal - Extremities General upper extremity: Normal inspection, Nontender, Normal strength, Normal temperature General lower extremity: Normal inspection, Nontender, Normal strength, Normal temperature - Neurological Neuro grossly intact: Yes Cognition: Normal Orientation: AAOx4 [place] Coma Scale Eye Opening: Spontaneous Dov Coma Scale Verbal: Oriented [place] Coma Scale Motor: Obeys Commands Dov Coma Scale Total: 15 Speech: Normal Cranial nerves: Normal Motor strength normal: LUE, RUE, LLE, RLE - Psychological Associated symptoms: Normal affect Course - Re-evaluation Re-evalutation: 08/28/18 00:08 53-year-old man with history of cancer and recurrent syncope. EKG is nondiagnostic but is not entirely normal. The patient is remarkably frail, he is also quit taking his medications. Chest x-ray is nondiagnostic, his labs demonstrated prerenal azotemia, he does have some evidence of dehydration. It is possible that this patient is chronically being under fed or dehydrated as a result of this tube feeds. He is very much diminished in stature and says he has lost a lot of weight. Am concerned that he may have some arrhythmia as he does have some prodrome prior to his syncopal episodes with lightheadedness. His orthostatics are modestly concerning with some evidence of changes in his vital signs. Have administered fluids will obtain a CTA of the chest, have spoken to the hospitalist about admission and monitoring. We will plan for this patient to go to a telemetry bed. CTA of the chest pending at the time of admission. Have spoken with the patient and his family about current course of action. - Vital Signs Vital signs: Temp Pulse Resp BP Pulse Ox 97.8 F 98 14 126/72 H 97 08/27/18 21:06 08/27/18 22:09 08/27/18 23:11 08/27/18 23:11 08/27/18 23:11 - Laboratory Result Diagrams: 08/27/18 21:30 08/27/18 21:30 Laboratory results interpreted by me: 08/27/18 08/27/18 08/27/18 21:30 21:30 23:11 RBC 3.58 L Hgb 12.5 L Hct 35.1 L MCV 98 H MCH 35.1 H Seg Neutrophils % 87.7 H Lymphocytes % 5.5 L Absolute Neutrophils 9.1 H Sodium 134.0 L Chloride 96 L Carbon Dioxide 31 H BUN 22 H Glucose 228 H Creatine Kinase 31 L Total Protein 6.1 L Albumin 3.3 L Urine Protein 30 H Urine Glucose (UA) >=500 H Urine Ketones TRACE H Urine Urobilinogen 2.0 H Urine Ascorbic Acid 40 H Discharge - Discharge Clinical Impression: Dehydration Syncope Qualifiers: Syncope type: unspecified Qualified Code(s): R55 - Syncope and collapse Condition: Stable Disposition: ADMITTED INPATIENT Admitting Provider: Hospitalist Unit Admitted: Telemetry
[2018-08-27 23:27] LABS: APPEARANCE,URINE SLIGHTLY-CLOUDY; BILIRUBIN,URINE NEGATIVE (NEGATIVE); COLOR,URINE YELLOW; GLUCOSE, URINE >=500 mg/dL (NEGATIVE); KETONES,URINE TRACE mg/dL (NEGATIVE); LEUKOCYTE ESTERASE,URINE NEGATIVE (NEGATIVE); NITRITE,URINE NEGATIVE (NEGATIVE); PROTEIN,URINE 30 mg/dL (NEGATIVE); URINE SPECIFIC GRAVITY 1.021
[2018-08-28 00:46] LABS: URINE AMPHETAMINES SCREEN NEGATIVE; URINE BARBITURATES SCREEN NEGATIVE; URINE BENZODIAZEPINES SCREEN NEGATIVE; URINE COCAINE SCREEN NEGATIVE; URINE MARIJUANA (THC) SCREEN UNCONFIRMED POSITIVE; URINE METHADONE SCREEN NEGATIVE; URINE PHENCYCLIDINE SCREEN NEGATIVE
[2018-08-28] MEDS ORDERED: ACETAMINOPHEN 325 MG TABLET PO PRN (01:44)
[2018-08-28] MEDS ORDERED: IPRATROPIUM/ALBUTEROL 0.5-2.5 MG/3 ML AMPUL NEB PRN (01:44)
[2018-08-28] MEDS ORDERED: NORMAL SALINE 1000 ML 1,000 ML IV PRN (01:45)
--- NOTE | 2018-08-28 01:53 | RADIOLOGY REPORT (SQ) ---
PROCEDURE: CT CHEST WITH INTRAVENOUS CONTRAST HISTORY: concern for pe. syncope, post esophagectomy Indication: Same as above Comparison: 11/16/2017 Technique: The study was done on 08/28/2018 at 1:[address] of the chest was done with intravenous contrast followed by CT angiography of the pulmonary arteries. Coronal, Sagittal and 3D volumetric MIP reconstructions were generated from the acquired data. The patient was injected with radiographic contrast intravenously, without any documented immediate adverse reactions. This exam was performed according to our departmental dose-optimization program, which includes automated exposure control, adjustment of the mA and/or KV according to the patient's size and/or use of iterative reconstruction technique. FINDINGS: There is no visualization of filling defects in the main pulmonary trunk, main right and left pulmonary arteries or their lower order branches to suggest pulmonary embolism. The bilateral main pulmonary arteries are normal in caliber. There is no evidence of interventricular septal deviation or filling defects in the cardiac chambers. There are no discrete airspace infiltrates, pneumothoraces or pleural effusions. The trachea, bilateral mainstem bronchi and the bilateral main segmental bronchi are patent without any intraluminal mass lesions. There is no gross evidence of clinically significant thoracic aortic aneurysm or thoracic aortic dissection. There is no clinically significant pericardial effusion. There are no pathologically enlarged lymph nodes in the mediastinum, bilateral hilar, bilateral supraclavicular or the bilateral axillary regions. The thoracic bony rib cage appears grossly unremarkable. The visualized thoracic spine shows mild multilevel degenerative change. Limited evaluation of the evaluated upper abdomen shows slightly thickened gallbladder wall with diffuse gallbladder wall enhancement and may relate to underlying cholecystitis. There is presence of a percutaneously placed catheter terminating in the anterior cavity of the stomach IMPRESSION: There is no pulmonary embolism, airspace infiltrates or pleural effusions Limited evaluation of the evaluated upper abdomen shows slightly thickened gallbladder wall with diffuse gallbladder wall enhancement and may relate to underlying cholecystitis.
[2018-08-28 03:14] LABS: ABSOLUTE EOSINOPHILS # (AUTO) 0.1 10^3/uL (0.0-0.6); ABSOLUTE LYMPHOCYTES (AUTO) 0.8 10^3/uL (0.5-4.7); ABSOLUTE MONOCYTES (AUTO) 0.6 10^3/uL (0.1-1.4); ABSOLUTE NEUT (AUTO) 7.4 10^3/uL (1.7-8.2); BASOPHILS % (AUTO) 0.3 % (0-2); EOSINOPHILS % (AUTO) 0.7 % (0-6); HEMATOCRIT 35.5 % (37.9-51.0); HEMOGLOBIN 12.4 g/dL (13.5-17.0); LYMPHOCYTES % (AUTO) 9.3 % (13-45); MEAN CORPUSCULAR HEMOGLOBIN 34.2 pg (27.0-33.4); MEAN CORPUSCULAR VOLUME 98 fl (80-97); MONOCYTES % (AUTO) 7.2 % (3-13); PLATELET COUNT 366 10^3/uL (150-450); RED BLOOD COUNT 3.64 10^6/uL (4.35-5.55); SEGMENTED NEUTROPHILS % (AUTO) 82.5 % (42-78); TOTAL CELLS COUNTED % (AUTO) 100 %
[2018-08-28 03:32] LABS: ANION GAP 5 (5-19); BLOOD UREA NITROGEN 15 mg/dL (7-20); CALCIUM 8.9 mg/dL (8.4-10.2); CARBON DIOXIDE 29 mmol/L (22-30); CHLORIDE 104 mmol/L (98-107); GLUCOSE 107 mg/dL (75-110)
[2018-08-28 03:43] LABS: CREATINE KINASE MB 2.09 ng/mL (<4.55); TROPONIN I 0.016 ng/mL
[2018-08-28] MEDS: HEPARIN SOD (PORCINE) 5,000 UNIT/ML 1 ML SYRINGE SUBCUT SCH ×2 (06:33→14:35)
--- NOTE | 2018-08-28 06:37 | PDOC H&P ---
History of Present Illness Admission Date/PCP: 08/27/18 23:56 Patient complains of: Near syncope History of Present Illness: CALLIE KELLY is a 53 year old male with a past medical history of head and neck cancer status post esophagectomy, G tube placement who presents with a near syncopal episode while sitting up. He admits sinusitis, but denies, shortness of breath, chest pain palpitations, nausea, vomiting, diaphoresis or headache. Patient admits to several other episodes in the recent past. In the emergency room he is found to have an unremarkable workup including a CTA and is referred to the hospitalist for admission. Patient admits to smoking marijuana prior to the event. Patient is upset with a suggestion it may be a contributing factor. Past Medical History Cardiac Medical History: Reports: Myocardial Infarction, Hypertension Pulmonary Medical History: Reports: Other - Chronic maxillary sinusitis EENT Medical History: Reports: Other Endocrine Medical History: Reports: None Renal/ Medical History: Reports: None Malignancy Medical History: Reports: None GI Medical History: Reports: Gastroesophageal Reflux Disease, Other - See history of present illness Musculoskeltal Medical History: Reports: None Skin Medical History: Reports: None Psychiatric Medical History: Reports: Substance Abuse Traumatic Medical History: Reports: None Hematology: Reports: None Infectious Medical History: Reports: None Past Surgical History Past Surgical History: Reports: Vascular Surgery - Stents, Other - Head and neck dissection of malignancy and esophagectomy Social History Information Source: Patient, Emergency Med Personnel, [facility] Records Smoking Status: Current Every Day Smoker Cigarettes Packs Per Day: 1 Number of Years Smokin Last Time Smoked: 08/27/18 Frequency of Alcohol Use: Rare Hx Recreational Drug Use: No Drugs: Marijuana - Advance Directive Resuscitation Status: Full Code Family History Family History: Hypertension Parental Family History Reviewed: Yes Children Family History Reviewed: Yes Sibling(s) Family History Reviewed.: Yes Medication/Allergy Home Medications: Atorvastatin Calcium 80 mg PEG DAILY 11/16/17 Chlorhexidine Gluconate [Peridex 0.12% Oral Rinse 60 ml] 15 ml MM BID 11/16/17 Clopidogrel Bisulfate [Clopidogrel] 75 mg PEG DAILY 11/16/17 Lisinopril [Zestril] 2.5 mg PEG DAILY 11/16/17 Metoprolol Tartrate 25 mg PEG BID 11/16/17 Nitroglycerin [Nitrostat] 0.4 mg SL Q5MP PRN MDD 3 11/16/17 Nutritional Supplement [Osmolite 1.5 Samuel] 237 ml PEG QID 11/16/17 Oxycodone HCl 5 mg PEG 5XD 11/16/17 Allergies/Adverse Reactions: No Known Allergies Allergy (Verified 07/29/18 19:13) Review of Systems Constitutional: PRESENT: as per HPI, anorexia, fatigue, weakness, weight loss. ABSENT: fever(s), headache(s), night sweats Eyes: ABSENT: visual disturbances Ears: ABSENT: hearing changes Cardiovascular: ABSENT: chest pain, dyspnea on exertion, edema, orthropnea, palpitations Respiratory: PRESENT: cough, sputum Gastrointestinal: PRESENT: as per HPI, bloating, constipation. ABSENT: abdominal pain, coffee ground emesis, nausea, vomiting Genitourinary: ABSENT: dysuria, hematuria Musculoskeletal: ABSENT: joint swelling Integumentary: ABSENT: rash, wounds Neurological: ABSENT: abnormal gait, abnormal speech, confusion, dizziness, focal weakness, syncope Psychiatric: PRESENT: anxiety. ABSENT: depression, homidical ideation, suicidal ideation Endocrine: ABSENT: cold intolerance, heat intolerance, polydipsia, polyuria Hematologic/Lymphatic: ABSENT: easy bleeding, easy bruising Physical Exam Vital Signs: Temp Pulse Resp BP Pulse Ox 98.2 F 94 18 149/90 H 99 08/28/18 03:48 08/28/18 03:48 08/28/18 01:47 08/28/18 03:48 08/28/18 03:48 Intake & Output 08/26/18 08/27/18 08/28/18 11:59 11:59 11:59 Intake Total 1000 Balance 1000 Weight 44.7 kg General appearance: PRESENT: cooperative, mild distress, thin Head exam: PRESENT: atraumatic, normocephalic Eye exam: PRESENT: conjunctiva pink, EOMI, PERRLA. ABSENT: scleral icterus Ear exam: PRESENT: normal external ear exam Mouth exam: PRESENT: moist, tongue midline Neck exam: PRESENT: lymphadenopathy Respiratory exam: PRESENT: clear to auscultation true, crackles, prolonged expiratory phas. ABSENT: rales, rhonchi, wheezes Cardiovascular exam: PRESENT: RRR. ABSENT: diastolic murmur, rubs, systolic murmur Pulses: PRESENT: normal dorsalis pedis pul Vascular exam: PRESENT: normal capillary refill GI/Abdominal exam: PRESENT: normal bowel sounds, soft. ABSENT: distended, guarding, mass, organolmegaly, rebound, tenderness Rectal exam: PRESENT: deferred Extremities exam: PRESENT: full ROM. ABSENT: calf tenderness, clubbing, pedal edema Neurological exam: PRESENT: alert, awake, oriented to person, oriented to place , oriented to time, oriented to situation, CN II-XII grossly intact. ABSENT: motor sensory deficit Psychiatric exam: PRESENT: anxious, normal mood. ABSENT: homicidal ideation, suicidal ideation Skin exam: PRESENT: dry, intact, warm. ABSENT: cyanosis, rash Results Laboratory Results: 08/28/18 03:05 08/28/18 03:05 08/28/18 08/28/18 03:05 03:05 WBC 9.0 RBC 3.64 L Hgb 12.4 L Hct 35.5 L MCV 98 H MCH 34.2 H MCHC 35.0 RDW 12.0 Plt Count 366 Seg Neutrophils % 82.5 H Lymphocytes % 9.3 L Monocytes % 7.2 Eosinophils % 0.7 Basophils % 0.3 Absolute Neutrophils 7.4 Absolute Lymphocytes 0.8 Absolute Monocytes 0.6 Absolute Eosinophils 0.1 Absolute Basophils 0.0 Sodium 138.0 Potassium 4.0 Chloride 104 Carbon Dioxide 29 Anion Gap 5 BUN 15 Creatinine 0.57 Est GFR ( Amer) > 60 Est GFR (Non-Af Amer) > 60 Glucose 107 Calcium 8.9 08/28/18 08/28/18 03:05 03:05 Creatine Kinase 36 L CK-MB (CK-2) 2.09 Troponin I 0.016 Impressions: Chest X-Ray 08/27/18 22:16 IMPRESSION: No acute cardiopulmonary findings. Chest/Abdomen CTA 08/28/18 00:00 IMPRESSION: There is no pulmonary embolism, airspace infiltrates or pleural effusions Limited evaluation of the evaluated upper abdomen shows slightly thickened gallbladder wall with diffuse gallbladder wall enhancement and may relate to underlying cholecystitis. Assessment & Plan - Diagnosis (1) Vasovagal near-syncope Is this a current diagnosis for this admission?: Yes Plan: Likely multifactorial secondary to dehydration and marijuana use. Follow-up telemetry, orthostatic vitals, cardiac enzymes. Education, JEANNE stockings as needed (2) Substance abuse Is this a current diagnosis for this admission?: Yes Plan: Education, supportive care (3) Head and neck cancer Is this a current diagnosis for this admission?: Yes Plan: Recent lymph node biopsy [facility], follow-up as scheduled. (4) Dehydration Is this a current diagnosis for this admission?: Yes Plan: IV fluid challenge, reevaluate chemistry - Time Time Spent: 50 to 70 Minutes - Inpatient Certification Medical Necessity: Need Close Monitoring Due to Risk of Patient Decompensation
[2018-08-28] MEDS ORDERED: IPRATROPIUM/ALBUTEROL 0.5-2.5 MG/3 ML AMPUL NEB SCH (08:00)
[2018-08-28] MEDS ORDERED: FLUTICASONE NASAL SPRAY 50 MCG/SPRY 120 SPRAY/16 GM NASL SCH (10:00)
[2018-08-28] MEDS ORDERED: DOCUSATE SODIUM 100 MG CAPSULE PO SCH (10:00)
[2018-08-28 10:33] LABS: CREATINE KINASE MB 2.17 ng/mL (<4.55); TROPONIN I 0.02 ng/mL
--- NOTE | 2018-08-28 10:44 | EKG REPORT ---
SEVERITY:- BORDERLINE ECG - SINUS RHYTHM BORDERLINE T ABNORMALITIES, LATERAL LEADS : Confirmed by: Bree Roth 28-Aug-2018 10:43:48
[2018-08-28] MEDS ORDERED: SCOPOLAMINE HYDROBROMIDE 1.5 MG PATCH.TD72 TD ONE (12:30)
[2018-08-28] MEDS ORDERED: LEVOTHYROXINE SODIUM 0.05 MG TABLET PO SCH (14:00)
[2018-08-28 14:34] VITALS: BP 152/86
--- NOTE | 2018-08-28 15:58 | PDOC DISCHARGE SUMMARY ---
General - Admit/Disc Date/PCP Admission Date/Primary Care Provider: 08/27/18 23:56 Discharge Date: 08/28/18 - Discharge Diagnosis (1) Syncope Is this a current diagnosis for this admission?: Yes Summary: The etiology of this event is multifactorial. Evidently the patient is not giving himself water boluses through his PEG tube causing dehydration. In addition he was using marijuana products prior to this event. He was hydrated and showed no orthostatic changes and this should prevent any further syncope. 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 He just had biopsy of a firm mass on the right side of his neck. As a result of his surgery he is dysarthric and has significant issues with secretion management. The biggest issue for him is the biopsy results which currently are pending. At this time the patient did not want to consider any hospice care. If the biopsy is positive for additional metastases then hospice care would likely be appropriate. He does have a follow-up scheduled with his oncologist. I believe this will occur when the biopsy results were available. In the meantime I have prescribed transdermal scopolamine to help with his secretion management. He also will be using Flonase to try and decrease congestion and nasal secretions. (3) Hypothyroidism Is this a current diagnosis for this admission?: Yes Summary: On his admission blood work the patient's TSH was found to be elevated at 11. This is likely related to his head neck cancer. I am not sure if he received external beam radiation therapy but this would be part of a typical protocol. I did give the patient a prescription for 50 mcg of levothyroxine that he will take through his PEG tube. If in fact the biopsy proves to be additional metastases and the patient does transition to hospice care the levothyroxine will be irrelevant. (4) Protein-calorie malnutrition, moderate Is this a current diagnosis for this admission?: Yes Summary: The patient does exhibit weakness as well as systemic loss of muscle mass. He is dependent on tube feedings as his sole source of nutrition. Based on his poor compliance to other measures he may not even be administering his tube feeds appropriately. Home health has been ordered and the dietitian did recommend a regimen. Hopefully home health can encourage better compliance to the regimen as well as maintenance of the PEG tube with flushes and ongoing water boluses. - Additional Information Resuscitation Status: Full Code Discharge Diet: As Tolerated, Regular, Tube Feeding (Comments) Discharge Activity: Activity As Tolerated Prescriptions: Fluticasone Propionate [Flonase Nasal [place] 50 Mcg/[place] 16 gm] 2 spray NASL Q12 30 Days #120 sprays Levothyroxine Sodium [Synthroid 0.05 mg Tablet] 0.05 mg PO Q6AM 30 Days #30 tablet Scopolamine [Transderm-Scop] 1 each TD Q3DAYS #7 patch.td.3 Home Medications: Acetaminophen [Tylenol 325 mg Tablet] 650 mg PO Q4HP PRN tablet 08/28/18 Atorvastatin Calcium [Lipitor 80 mg Tablet] 80 mg PO HSP PRN 08/28/18 Azithromycin [Zithromax 250 mg Tablet] 250 mg PO DAILY MDD *ZPAK* 08/28/18 Clopidogrel Bisulfate [Plavix 75 mg Tablet] 75 mg PO DAILY 08/28/18 Docusate Sodium [Colace 100 mg Capsule] 100 mg PO BID capsule 08/28/18 Fluticasone Propionate [Flonase Nasal [place] 50 Mcg/[place] 16 gm] 2 spray NASL Q12 30 Days #120 sprays 08/28/18 Levothyroxine Sodium [Synthroid 0.05 mg Tablet] 0.05 mg PO Q6AM 30 Days #30 tablet 08/28/18 Metoprolol Tartrate [Lopressor 25 mg Tablet] 25 mg PO Q12 08/28/18 Nitroglycerin [Nitrostat 0.4 mg (1/150 Gr) Tabs 25/Bottle] 0.4 mg PO Q5MP PRN Scopolamine [Transderm-Scop] 1 each TD Q3DAYS #7 patch.td.3 08/28/18 History of Present Illness Patient complains of: His biggest issue today is secretion management. History of Present Illness: CALLIE KELLY is a 53 year old male Physical Exam Vital Signs: Temp Pulse Resp BP Pulse Ox 97.8 F 94 18 129/84 H 99 08/28/18 13:42 08/28/18 13:42 08/28/18 13:42 08/28/18 13:42 08/28/18 13:42 Intake & Output 08/27/18 08/28/18 08/29/18 06:59 06:59 06:59 Intake Total 1000 1000 Output Total 1200 Balance 1000 -200 Weight 44.7 kg General appearance: PRESENT: cooperative, mild distress, thin Head exam: PRESENT: atraumatic, normocephalic Eye exam: PRESENT: conjunctiva pale. ABSENT: scleral icterus Mouth exam: PRESENT: other - Increased secretions Neck exam: PRESENT: other - Large firm mass on the right side of his neck. It is mobile. It is not tender or discolored. Respiratory exam: PRESENT: clear to auscultation true, other - He does have congested breath sounds due to the volume of secretions.. ABSENT: rales, rhonchi, wheezes Cardiovascular exam: PRESENT: RRR, +S1, +S2 GI/Abdominal exam: PRESENT: normal bowel sounds, soft, other - PEG tube is in place. Rectal exam: PRESENT: deferred Musculoskeletal exam: PRESENT: other - Decreased muscle mass systemically. Neurological exam: PRESENT: alert, awake, oriented to person, oriented to place , oriented to time, oriented to situation, other - Dysarthria from his head and neck surgery. Psychiatric exam: PRESENT: anxious, appropriate affect Skin exam: PRESENT: dry, intact, warm. ABSENT: cyanosis, rash Results Laboratory Results: 08/28/18 03:05 08/28/18 03:05 08/28/18 08/28/18 03:05 03:05 WBC 9.0 RBC 3.64 L Hgb 12.4 L Hct 35.5 L MCV 98 H MCH 34.2 H MCHC 35.0 RDW 12.0 Plt Count 366 Seg Neutrophils % 82.5 H Lymphocytes % 9.3 L Monocytes % 7.2 Eosinophils % 0.7 Basophils % 0.3 Absolute Neutrophils 7.4 Absolute Lymphocytes 0.8 Absolute Monocytes 0.6 Absolute Eosinophils 0.1 Absolute Basophils 0.0 Sodium 138.0 Potassium 4.0 Chloride 104 Carbon Dioxide 29 Anion Gap 5 BUN 15 Creatinine 0.57 Est GFR ( Amer) > 60 Est GFR (Non-Af Amer) > 60 Glucose 107 Calcium 8.9 08/28/18 08/28/18 08/28/18 03:05 03:05 09:00 Creatine Kinase 36 L 28 L CK-MB (CK-2) 2.09 Troponin I 0.016 08/28/18 09:00 Creatine Kinase CK-MB (CK-2) 2.17 Troponin I 0.020 Impressions: Chest X-Ray 08/27/18 22:16 IMPRESSION: No acute cardiopulmonary findings. Chest/Abdomen CTA 08/28/18 00:00 IMPRESSION: There is no pulmonary embolism, airspace infiltrates or pleural effusions Limited evaluation of the evaluated upper abdomen shows slightly thickened gallbladder wall with diffuse gallbladder wall enhancement and may relate to underlying cholecystitis. Qualifiers - * PATIENT BEING DISCHARGED WITH ANY OF THE FOLLOWING DIAGNOSIS: No
== END 2018-08-28 14:35 | disposition home health service (06) ==
LOC: ER 20:58 → EH 23:56 → INTOOBSV 23:56 → 4N 08-28 02:08
PROVIDERS: ADMIT Internal Medicine; ATTEND Internal Medicine
DX: R55 Syncope and collapse (principal); C79.89 Secondary malignant neoplasm of other specified sites; E86.0 Dehydration; E03.9 Hypothyroidism, unspecified; E44.0 Moderate protein-calorie malnutrition; Z68.1 Body mass index [BMI] 19.9 or less, adult; F17.210 Nicotine dependence, cigarettes, uncomplicated; T81.89XS Other complications of procedures, not elsewhere classified, sequela; R47.1 Dysarthria and anarthria; Y83.8 Other surgical procedures as the cause of abnormal reaction of the patient, or of later complication, without mention of misadventure at the time of the procedure; K59.00 Constipation, unspecified; R79.89 Other specified abnormal findings of blood chemistry; R19.6 Halitosis; F41.9 Anxiety disorder, unspecified; F12.10 Cannabis abuse, uncomplicated; J01.90 Acute sinusitis, unspecified; R00.0 Tachycardia, unspecified; R14.0 Abdominal distension (gaseous); R09.89 Other specified symptoms and signs involving the circulatory and respiratory systems; I25.2 Old myocardial infarction; Z93.1 Gastrostomy status; Z90.49 Acquired absence of other specified parts of digestive tract; Z85.810 Personal history of malignant neoplasm of tongue; Z98.890 Other specified postprocedural states; Z91.14 Patient's other noncompliance with medication regimen; Z95.5 Presence of coronary angioplasty implant and graft; Z23 Encounter for immunization
CPT/HCPCS: 93005; 99285; 96360; 36415 ×2; 82553 ×2; 82962; 82550 ×2; 84443; 85025 ×2; 85730; 80048; 80053; 81001; 84484 ×2; 80307; 71046; 71275; 90686; 93010; 94640; G0378 ×2; G0008; J3490 ×4; J1644; J7030 ×2; J7620; 90471

== ENCOUNTER 2019-05-05 19:26 | Inpatient (IN) | payer MEDICAID ==
[2019-05-05] MEDS ORDERED: LEVOFLOXACIN 750 MG/D5W RTU 750 MG/150 ML RTUPB IV ONE (19:50)
[2019-05-05] MEDS ORDERED: RINGERS SOLUTION,LACTATED 1,000 ML IV ONE (19:50)
[2019-05-05] MEDS ORDERED: ACETAMINOPHEN 325 MG TABLET PO ONE (19:51)
--- NOTE | 2019-05-05 19:57 | RADIOLOGY REPORT (SQ) ---
EXAM DESCRIPTION: CHEST SINGLE VIEW COMPLETED DATE/TIME: 05/05/2019 7:46 pm REASON FOR STUDY: chest pain COMPARISON: 08/27/2018 EXAM PARAMETERS: NUMBER OF VIEWS: One view. TECHNIQUE: Single frontal radiographic view of the chest acquired. RADIATION DOSE: NA LIMITATIONS: None. FINDINGS: LUNGS AND PLEURA: Airspace opacity localizes to the lingula. The lungs are otherwise mariana r. No pleural effusion or pneumothorax. MEDIASTINUM AND HILAR STRUCTURES: No masses. Contour normal. HEART AND VASCULAR STRUCTURES: Heart normal in size. Normal vasculature. BONES: No acute findings. HARDWARE: Left upper extremity PICC terminates in the region of the cavoatrial junction. Tracheostom y sheath projects in the midline over the tracheal air shadow. OTHER: No other significant finding. IMPRESSION: In the appropriate clinical setting, findings are consistent with lingular pneumonia. TECHNICAL DOCUMENTATION: JOB ID: [id number] [facility]- All Rights Reserved Reading location - IP/workstation name: [email or web address]
--- NOTE | 2019-05-05 19:57 | ER Document Report ---
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 Patient is only able to communicate through writing at this time and this does significantly limit history. The patient apparently began having increasing weakness, cough and increased production of sputum within the last 24 hours. Was noted to be febrile today by EMS. History of similar symptoms in the past with pneumonia. Patient does state that he feels somewhat more short of breath than normal. Was saturating 93% on room air but normally uses a collar at baseline. Family reports that the patient is currently taking doxycycline but they do not know why. He has not seen his primary care physician regarding today's concerns. History otherwise limited secondary to the patient's limited means of communication. TRAVEL OUTSIDE OF THE [place] IN LAST 30 DAYS: No - Related Data Allergies/Adverse Reactions: No Known Allergies Allergy (Verified 05/05/19 20:07) Past Medical History - General Information source: Patient, Relative - Social History Smoking Status: Former Smoker Frequency of alcohol use: None Drug Abuse: None Lives with: Family Family History: Hypertension - Past Medical History Cardiac Medical History: Reports: Hx Heart Attack, Hx Hypertension Renal/ Medical History: Denies: Hx Peritoneal Dialysis GI Medical History: Reports: Hx Gastroesophageal Reflux Disease Past Surgical History: Reports: Hx Oral Surgery - Tongue cancer removed, Hx Vascular Surgery - Stents, Other - Head and neck dissection of malignancy and esophagectomy Review of Systems - Review of Systems Notes: Constitutional: Positive for fever. HENT: Negative for sore throat. Eyes: Negative for visual changes. Cardiovascular: Negative for chest pain. Respiratory: Positive for shortness of breath. Gastrointestinal: Negative for abdominal pain, vomiting or diarrhea. Genitourinary: Negative for dysuria. Musculoskeletal: Negative for back pain. Skin: Negative for rash. Neurological: Negative for headaches, weakness or numbness. 10 point ROS negative except as marked above and in HPI. Physical Exam - Vital signs Vitals: Temp Pulse Resp BP Pulse Ox 102 F H 130 H 24 H 108/71 93 05/05/19 19:26 05/05/19 19:26 05/05/19 19:26 05/05/19 19:26 05/05/19 19:26 Interpretation: Tachycardic, Febrile Notes: PHYSICAL EXAMINATION: GENERAL: Chronically ill in appearance, no acute distress HEAD: Atraumatic, normocephalic. EYES: Pupils equal round and reactive to light, extraocular movements intact, sclera anicteric, conjunctiva are normal. ENT: nares patent, tracheostomy in place, oropharynx clear without exudates. Moist mucous membranes. NECK: Normal range of motion, supple without lymphadenopathy LUNGS: Mild tachypnea, coarse rales at the bases bilaterally, worse on left versus right. HEART: regular tachycardia, without murmurs ABDOMEN: Soft, nontender, normoactive bowel sounds. No guarding, no rebound. No masses appreciated. EXTREMITIES: Normal range of motion, no pitting or edema. No cyanosis. NEUROLOGICAL: No focal neurological deficits. Moves all extremities spontaneously and on command. PSYCH: difficult to assess secondary to inability to communicate SKIN: Warm, Dry, normal turgor, no rashes or lesions noted. Course - Re-evaluation Re-evalutation: 05/05/19 19:57 Patient presents with fever, cough, increased secretions through his tracheostomy. Initial vitals show tachycardia, fever, mild tachypnea although patient is saturating 99% on a tracheal mask. The chest x-ray appears to reveal a left lower lobe infiltrate consistent with a clinical history of pneumonia as well. Patient was started on IV fluids, antipyretics, IV levofloxacin. Will continue to reassess. 05/05/19 21:23 Chest x-ray does confirm a pneumonia. I have discussed this case with the hospitalist Dr. Franco who is accepted the patient for admission. - Vital Signs Vital signs: Temp Pulse Resp BP Pulse Ox 102 F H 130 H 24 H 108/71 95 05/05/19 19:26 05/05/19 19:26 05/05/19 19:26 05/05/19 19:26 05/05/19 19:40 - Laboratory Result Diagrams: 05/05/19 19:42 05/05/19 19:42 Laboratory results interpreted by me: 05/05/19 19:42 Glucose 127 H Alkaline Phosphatase 133 H - Diagnostic Test Radiology reviewed: Image reviewed, Reports reviewed Radiology results interpreted by me: 05/05/19 21:23 Chest x-ray: Left lingular pneumonia - EKG Interpretation by Me Additional EKG results interpreted by me: 05/05/19 21:24 Sinus tachycardia, rate 140, no ST elevations or depressions. QTC is 427. Discharge - Discharge Clinical Impression: Protein-calorie malnutrition, moderate, Lingular pneumonia Sepsis Qualifiers: Sepsis type: sepsis due to unspecified organism Qualified Code(s): A41.9 - Sepsis, unspecified organism Condition: Fair Disposition: ADMITTED INPATIENT Admitting Provider: Salvador (Hospitalist) Unit Admitted: Medical Floor
[2019-05-05] MEDS ORDERED: ACETAMINOPHEN SOLN 325 MG/10.15 ML UDCUP PO ONE (20:04)
[2019-05-05 20:22] LABS: VENOUS BLOOD BASE EXCESS 3.1 mmol/L; VENOUS BLOOD HCO3 30.3 mmol/L (20-32); VENOUS BLOOD PCO2 55.5 mmHg (35-63); VENOUS BLOOD PH 7.36 (7.30-7.42)
[2019-05-05 20:40] LABS: HEMATOCRIT 42.5 % (37.9-51.0); HEMOGLOBIN 14.5 g/dL (13.5-17.0); MEAN CORPUSCULAR HEMOGLOBIN 33.2 pg (27.0-33.4); MEAN CORPUSCULAR HGB CONC 34.2 g/dL (32.0-36.0); MEAN CORPUSCULAR VOLUME 97 fl (80-97); PLATELET COUNT 402 10^3/uL (150-450); RED BLOOD COUNT 4.36 10^6/uL (4.35-5.55); RED CELL DISTRIBUTION WIDTH 13.4 % (11.5-14.0); WHITE BLOOD COUNT 17.5 10^3/uL (4.0-10.5)
[2019-05-05 20:42] LABS: ALANINE AMINOTRANSFERASE 35 U/L (21-72); ALBUMIN 3.8 g/dL (3.5-5.0); ALKALINE PHOSPHATASE 133 U/L (38-126); ANION GAP 10 (5-19); ASPARTATE AMINO TRANSFERASE 31 U/L (17-59); BILIRUBIN,DIRECT 0.3 mg/dL (0.0-0.4); BILIRUBIN,TOTAL 0.5 mg/dL (0.2-1.3); BLOOD UREA NITROGEN 16 mg/dL (7-20); CALCIUM 8.9 mg/dL (8.4-10.2); CARBON DIOXIDE 28 mmol/L (22-30); CHLORIDE 100 mmol/L (98-107); GLUCOSE 127 mg/dL (75-110); SODIUM 138.2 mmol/L (137-145); TOTAL PROTEIN 6.6 g/dL (6.3-8.2)
[2019-05-05 21:22] LABS: ABSOLUTE MONOCYTES # (MANUAL) 1.1 10^3/uL (0.1-1.4); BASOPHILS % (MANUAL) 0 % (0-2); EOSINOPHILS % (MANUAL) 0 % (0-6); LYMPHOCYTES % (MANUAL) 0 % (13-45); MONOCYTES % (MANUAL) 6 % (3-13); SEGMENTED NEUTROPHILS % (MAN) 78 % (42-78); TOTAL CELLS COUNTED 100
[2019-05-05 21:23] LABS: PLATELET COMMENT ADEQUATE; RBC MORPHOLOGY COMMENT NORMO-CYTIC/CHROMIC
[2019-05-05 21:24] LABS: BAND NEUTROPHILS % (MANUAL) 16 % (3-5)
[2019-05-05] MEDS ORDERED: GUAIFENESIN SYRP 200 MG/10 ML UDC GT PRN (22:14)
[2019-05-05] MEDS ORDERED: ACETAMINOPHEN 325 MG TABLET GT PRN (22:14)
[2019-05-05] MEDS ORDERED: MORPHINE SULFATE 10 MG/ML INJ IV PRN ×4 (22:23→22:35)
[2019-05-05] MEDS ORDERED: HYDRALAZINE HCL INJ/PF 20 MG/1 ML SDV IV PRN (22:23)
[2019-05-05] MEDS ORDERED: IBUPROFEN 800 MG TABLET GT PRN (22:23)
[2019-05-05] MEDS ORDERED: NITROGLYCERIN 0.4 MG/TAB 25 TAB/BOTTLE SL PRN (22:33)
[2019-05-05] MEDS ORDERED: FAMOTIDINE 20 MG TABLET GT ONE (23:00)
[2019-05-05] MEDS ORDERED: CEFEPIME 2 GM/D5W RTU 2 GM/50 ML RTUPB IV ONE (23:00)
[2019-05-05 23:10] LABS: FREE T3 3.26 pg/mL (2.77-5.27); FREE T4 (FREE THYROXINE) 1.09 ng/dL (0.78-2.19)
[2019-05-05] MEDS ORDERED: ATORVASTATIN CALCIUM 10 MG TABLET PO ONE (23:15)
[2019-05-05] MEDS ORDERED: METOPROLOL TARTRATE 25 MG TABLET PO ONE (23:15)
[2019-05-05] MEDS: RINGERS SOLUTION,LACTATED 1,000 ML IV PRN (23:59)
[2019-05-06] MEDS ORDERED: CEFEPIME 2 GM/D5W RTU 2 GM/50 ML RTUPB IV ONE (00:09)
[2019-05-06] MEDS ORDERED: RINGERS SOLUTION,LACTATED 1,000 ML IV PRN (00:19)
--- NOTE | 2019-05-06 00:34 | EKG REPORT ---
SEVERITY:- ABNORMAL ECG - SINUS TACHYCARDIA LATERAL INFARCT, AGE INDETERMINATE NONSPECIFIC T ABNORMALITIES, INFERIOR LEADS : Confirmed by: Bree Roth 06-May-2019 00:33:44
[2019-05-06] MEDS: IPRATROPIUM BROMIDE 0.02% NEB 0.5 MG/2.5 ML AMPUL NEB SCH ×3 (01:55→16:02)
[2019-05-06] MEDS: LEVALBUTEROL HCL NEB 1.25 MG/3 ML AMPUL NEB SCH ×3 (01:55→16:02)
--- NOTE | 2019-05-06 02:05 | ADVANCED CARE ---
- Diagnosis (1) Lingular pneumonia Diagnosis Current: Yes (2) Acute and chronic respiratory failure with hypoxia Diagnosis Current: Yes (3) SIRS (systemic inflammatory response syndrome) Diagnosis Current: Yes (4) Hypothyroidism Diagnosis Current: Yes (5) HLD (hyperlipidemia) Diagnosis Current: Yes (6) HTN (hypertension) Diagnosis Current: Yes Attendance: The patient and myself Resuscitation Status: Full Code Discussion: Patient wishes to remain a full code resuscitation status for any cardiac or respiratory arrest that may occur during his hospitalization. Patient has named Elgin Read as his designated surrogate medical decision maker. Care Planning Goals: 1. Patient will be full CODE STATUS for this admission. 2. Elgin Read is the patient's designated surrogate medical decision maker. Document(s) Completed: The following information will be entered into the patient's permanent medical record as well as his current medical record and current medical orders via EMR entry: 1. Patient will be full CODE STATUS for this admission. 2. Elgin Read is the patient's designated surrogate medical decision maker. Time Spent: 8 minutes
--- NOTE | 2019-05-06 02:10 | PDOC H&P ---
History of Present Illness Admission Date/PCP: 05/05/2019 21:11 Patient complains of: Cough History of Present Illness: CALLIE KELLY is a 53 year old male who presented to the emergency room with a 1 day history of cough. 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 He noted a progressively worsening productive cough beginning on the day prior to admission. The cough did become severe and was productive of purulent sputum through his tracheostomy tube. The cough was accompanied by the progressively worsening symptoms of generalized weakness and dyspnea at rest. The patient has been taking doxycycline orally at home on a daily basis, for indication(s) that are uncertain. Because of his severe cough and worsening condition his family called EMS and upon their arrival he was found to be febrile with an O2 sat of 93% on room air. He denies prior similar episodes and has not identified any aggravating or ameliorating factors for his cough. In the emergency room he was found to be febrile and was noted to have a left lingular pneumonia by chest x- ray. He was subsequently admitted to the hospital for further evaluation and treatment. Past Medical History Cardiac Medical History: Reports: Myocardial Infarction - Patient reports history of myocardial infarction, Hyperlipidema, Hypertension, Peripheral Vascular Disease Pulmonary Medical History: Reports: Respiratory Failure - Uses O2 per tracheostomy collar at home, Other - Chronic maxillary sinusitis, EENT Medical History: Denies: Cataracts, Ears - Hearing aids Neurological Medical History: Denies: Hemorrhagic CVA, Ischemic CVA, Multiple Sclerosis, Seizures Endocrine Medical History: Reports: Hypothyroidism Denies: Diabetes Mellitus Type 1, Diabetes Mellitus Type 2, Hyperthyroidism Renal/ Medical History: Denies: Chronic Kidney Disease, Nephrolithiasis Malignancy Medical History: Reports: Other - Tongue cancer GI Medical History: Reports: Gastroesophageal Reflux Disease Denies: Cirrhosis, Crohn's Disease, Hepatitis, Ulcerative Colitis Musculoskeltal Medical History: Denies: Arthritis, Gout Skin Medical History: Denies: Eczema, Psoriasis Psychiatric Medical History: Reports: Substance Abuse, Tobacco Dependency Denies: Alcohol Dependency Traumatic Medical History: Reports: None Hematology: Denies: Anemia, Bleeding Tendencies Infectious Medical History: Reports: None Past Surgical History Past Surgical History: Reports: Vascular Surgery - Stents, Other - Head and neck dissection of malignancy and esophagectomy, tracheostomy Social History Information Source: Patient Lives with: Family Smoking Status: Former Smoker Frequency of Alcohol Use: Rare Hx Recreational Drug Use: Yes - No recent use Drugs: Marijuana Hx Prescription Drug Abuse: No - Advance Directive Resuscitation Status: Full Code Surrogate healthcare decision maker:: Elgin Kelly Family History Family History: Hypertension Parental Family History Reviewed: Yes Children Family History Reviewed: No Sibling(s) Family History Reviewed.: Yes Medication/Allergy Home Medications: Acetaminophen [Tylenol 325 mg Tablet] 650 mg PO Q4HP PRN tablet 08/28/18 Docusate Sodium [Colace 100 mg Capsule] 100 mg PO BID capsule 08/28/18 Fluticasone Propionate [Flonase Nasal [place] 50 Mcg/[place] 16 gm] 2 spray NASL Q12 30 Days #120 sprays 08/28/18 Levothyroxine Sodium [Synthroid 0.05 mg Tablet] 0.05 mg PO Q6AM 30 Days #30 tablet 08/28/18 Metoprolol Tartrate [Lopressor 25 mg Tablet] 12.5 mg PO Q12 08/28/18 Nitroglycerin [Nitrostat 0.4 mg (1/150 Gr) Tabs 25/Bottle] 0.4 mg PO Q5MP PRN 08/28/18 Scopolamine [Transderm-Scop] 1 each TD Q3DAYS #7 patch.td.3 08/28/18 Atorvastatin Calcium [Lipitor 10 mg Tablet] 10 mg PO QHS 05/05/19 Doxycycline Hyclate 100 mg PO BID 05/05/19 Lactulose 30 ml NG DAILYP PRN 05/05/19 Oxycodone HCl 15 mg NG Q4HP PRN 05/05/19 Pantoprazole Sodium [Protonix [address] Packet] 40 mg NG DAILY 05/05/19 Allergies/Adverse Reactions: No Known Allergies Allergy (Verified 05/05/19 22:13) Review of Systems Constitutional: PRESENT: as per HPI, weakness. ABSENT: chills, fever(s), night sweats Eyes: ABSENT: visual disturbances, other - Eye pain Ears: ABSENT: hearing changes, other - Ear pain Nose, Mouth, and Throat: ABSENT: headache(s), mouth pain, sore throat Cardiovascular: ABSENT: chest pain, edema, palpitations Respiratory: PRESENT: as per HPI, cough, dyspnea, sputum. ABSENT: hemoptysis Gastrointestinal: ABSENT: abdominal pain, constipation, diarrhea, nausea, vomiting Genitourinary: ABSENT: dysuria, hematuria Musculoskeletal: ABSENT: back pain, joint swelling, muscle weakness Integumentary: ABSENT: diaphoresis, pruritus, rash Neurological: ABSENT: confusion, convulsions, focal weakness, memory loss, syncope Psychiatric: ABSENT: anxiety, depression Endocrine: ABSENT: cold intolerance, heat intolerance Hematologic/Lymphatic: ABSENT: easy bleeding, easy bruising Physical Exam Vital Signs: Temp Pulse Resp BP Pulse Ox 102 F H 130 H 24 H 108/71 95 05/05/19 19:26 05/05/19 19:26 05/05/19 19:26 05/05/19 19:26 05/05/19 19:40 Intake & Output 05/03/19 05/04/19 05/05/19 23:59 23:59 23:59 Weight 51.2 kg General appearance: PRESENT: no acute distress, cooperative Head exam: PRESENT: atraumatic, normocephalic Eye exam: PRESENT: conjunctiva pink. ABSENT: conjunctival injection, scleral icterus Ear exam: PRESENT: normal external ear exam. ABSENT: bleeding, drainage Mouth exam: PRESENT: dry mucosa, neck supple, other - Status post radical oral and neck surgery Neck exam: PRESENT: tracheostomy. ABSENT: JVD, thyromegaly Respiratory exam: PRESENT: rales - Coarse rales noted in the left lower anterior lung rob, rhonchi - Coarse central rhonchi present, symmetrical, unlabored Cardiovascular exam: PRESENT: RRR, tachycardia. ABSENT: clicks, gallop, rubs Pulses: PRESENT: normal radial pulses, normal dorsalis pedis pul Vascular exam: PRESENT: normal capillary refill. ABSENT: pallor GI/Abdominal exam: PRESENT: normal bowel sounds, soft Rectal exam: PRESENT: deferred Extremities exam: ABSENT: joint swelling, pedal edema Musculoskeletal exam: PRESENT: full ROM, normal inspection Neurological exam: PRESENT: alert, oriented to person, oriented to place, oriented to time, oriented to situation. ABSENT: motor sensory deficit Psychiatric exam: PRESENT: appropriate affect, normal mood Skin exam: PRESENT: dry, intact, warm. ABSENT: jaundice, rash, urticaria Results Laboratory Results: 05/05/19 19:42 05/05/19 19:42 05/05/19 05/05/19 05/05/19 19:42 19:42 19:42 WBC 17.5 H RBC 4.36 Hgb 14.5 Hct 42.5 MCV 97 MCH 33.2 MCHC 34.2 RDW 13.4 Plt Count 402 Seg Neutrophils % Not Reportable Lymphocytes % Not Reportable Monocytes % Not Reportable Eosinophils % Not Reportable Basophils % Not Reportable Absolute Neutrophils Not Reportable Absolute Lymphocytes Not Reportable Absolute Monocytes Not Reportable Absolute Eosinophils Not Reportable Absolute Basophils Not Reportable VBG pH VBG pCO2 VBG HCO3 VBG Base Excess Sodium 138.2 Potassium 4.0 Chloride 100 Carbon Dioxide 28 Anion Gap 10 BUN 16 Creatinine 0.53 Est GFR ( Amer) > 60 Est GFR (Non-Af Amer) > 60 Glucose 127 H Lactic Acid 1.5 Calcium 8.9 Total Bilirubin 0.5 AST 31 ALT 35 Alkaline Phosphatase 133 H Total Protein 6.6 Albumin 3.8 05/05/19 19:42 WBC RBC Hgb Hct MCV MCH MCHC RDW Plt Count Seg Neutrophils % Lymphocytes % Monocytes % Eosinophils % Basophils % Absolute Neutrophils Absolute Lymphocytes Absolute Monocytes Absolute Eosinophils Absolute Basophils VBG pH 7.36 VBG pCO2 55.5 VBG HCO3 30.3 VBG Base Excess 3.1 Sodium Potassium Chloride Carbon Dioxide Anion Gap BUN Creatinine Est GFR ( Amer) Est GFR (Non-Af Amer) Glucose Lactic Acid Calcium Total Bilirubin AST ALT Alkaline Phosphatase Total Protein Albumin Impressions: Chest X-Ray 05/05/19 19:28 IMPRESSION: In the appropriate clinical setting, findings are consistent with lingular pneumonia. Assessment and Plan - Diagnosis (1) Lingular pneumonia Is this a current diagnosis for this admission?: Yes Plan: Patient's left lingular pneumonia is community-acquired but complicated by the patient's apparent pre-illness use of doxycycline. He will therefore be treated with advanced care level antibiotic therapy utilizing intravenous cefepime and levofloxacin. He will receive usual supportive and symptomatic cares. He will initially be maintained with IV fluids until his fever is well controlled. He will receive an aggressive pulmonary toilet utilizing Xopenex, Atrovent and M ucomyst. Chest physiotherapy will be performed twice daily. He will also use morphine sulfate 2 to 4 mg IV every 2 hours on a as needed basis for pain and discomfort associated with his pneumonia using a sliding scale based on pain level. (2) Acute and chronic respiratory failure with hypoxia Is this a current diagnosis for this admission?: Yes Plan: Patient will receive supplemental oxygen as required to maintain an O2 sat g reater than 93%. His O2 sat will be monitored frequently throughout his hospital course. (3) SIRS (systemic inflammatory response syndrome) Is this a current diagnosis for this admission?: Yes Plan: Patient's fever, tachycardia, and elevated white blood count in the presence of a pneumonia are expected. His lactic acid is normal. Patient will be monitored on an ongoing basis for indications of secondary organ failure or other signs of sepsis. (4) Hypothyroidism Qualifiers: Hypothyroidism type: unspecified Qualified Code(s): E03.9 - Hypothyroidism, unspecified Is this a current diagnosis for this admission?: Yes Plan: Patient will be continued on his usual thyroid hormone replacement regimen. A thyroid profile will be obtained to assess efficacy of current therapy. (5) HLD (hyperlipidemia) Qualifiers: Hyperlipidemia type: unspecified Qualified Code(s): E78.5 - Hyperlipidemia, unspecified Is this a current diagnosis for this admission?: Yes Plan: Patient will be continued on his current antilipid therapy. He will also be on a cardiac diet. A lipid profile will be obtained to assess the efficacy of his current therapy. (6) HTN (hypertension) Qualifiers: Hypertension type: essential hypertension Qualified Code(s): I10 - Essential (primary) hypertension Is this a current diagnosis for this admission?: Yes Plan: Patient will be continued on his usual antihypertensive therapy. He has blood pressure be observed closely throughout his hospital course with adjustments to therapy being made as required. - Time Time Spent with patient: 35 or more minutes Medications reviewed and adjusted accordingly: Yes Anticipated discharge: Home, Home with Homehealth - Inpatient Certification Based on my medical assessment, after consideration of the patient's comorbidities, presenting symptoms, or acuity I expect that the services needed warrant INPATIENT care.: Yes I certify that my determination is in accordance with my understanding of Medicare's requirements for reasonable and necessary INPATIENT services [42 CFR 412.3e].: Yes Medical Necessity: Significant Comorbidiites Make Outpatient Treatment Too Risky, Need Close Monitoring Due to Risk of Patient Decompensation, Need for Nebulizer Therapy and Monitoring of Response, Need for IV Antibiotics, Risk of Complication if Not Cared For in Hospital
[2019-05-06] MEDS: RINGERS SOLUTION,LACTATED 1,000 ML IV PRN ×4 (02:43→22:18)
[2019-05-06] MEDS ORDERED: PANTOPRAZOLE SODIUM 40 MG PACKET.DR ONE (06:08)
[2019-05-06] MEDS: LEVOTHYROXINE SODIUM 0.05 MG TABLET PO SCH (06:55)
[2019-05-06] MEDS: PANTOPRAZOLE SODIUM 40 MG PACKET.DR NG SCH (06:55)
[2019-05-06] MEDS: HEPARIN SOD (PORCINE) 5,000 UNIT/ML 1 ML SYRINGE SUBCUT SCH ×3 (06:55→22:08)
[2019-05-06 07:28] LABS: ANION GAP 5 (5-19); BLOOD UREA NITROGEN 9 mg/dL (7-20); CALCIUM 8.6 mg/dL (8.4-10.2); CARBON DIOXIDE 29 mmol/L (22-30); CHLORIDE 105 mmol/L (98-107); GLUCOSE 106 mg/dL (75-110); POTASSIUM 3.9 mmol/L (3.6-5.0); SODIUM 138.8 mmol/L (137-145); TRIGLYCERIDES 54 mg/dL (<150)
[2019-05-06 07:38] LABS: DIRECT LDL 50 mg/dL (<100)
[2019-05-06] MEDS: ACETYLCYSTEINE 20% SOLN 800 MG/4 ML VIAL.NEB NEB SCH ×2 (08:00→19:52)
[2019-05-06 09:01] LABS: HEMATOCRIT 32.9 % (37.9-51.0); MEAN CORPUSCULAR HEMOGLOBIN 33.3 pg (27.0-33.4); MEAN CORPUSCULAR HGB CONC 34.2 g/dL (32.0-36.0); MEAN CORPUSCULAR VOLUME 97 fl (80-97); PLATELET COUNT 311 10^3/uL (150-450); RED BLOOD COUNT 3.38 10^6/uL (4.35-5.55); WHITE BLOOD COUNT 14.3 10^3/uL (4.0-10.5)
[2019-05-06] MEDS ORDERED: FAMOTIDINE 20 MG TABLET GT SCH (10:00)
[2019-05-06] MEDS ORDERED: CEFEPIME 2 GM/D5W RTU 2 GM/50 ML RTUPB IV SCH (10:00)
[2019-05-06] MEDS ORDERED: DOCUSATE SODIUM 100 MG CAPSULE PO SCH (10:00)
[2019-05-06 10:25] LABS: HEMOGLOBIN 11.2 g/dL (13.5-17.0)
[2019-05-06 10:29] LABS: ABSOLUTE LYMPHOCYTES# (MANUAL) 0.7 10^3/uL (0.5-4.7); ABSOLUTE MONOCYTES # (MANUAL) 0.9 10^3/uL (0.1-1.4); BASOPHILS % (MANUAL) 0 % (0-2); EOSINOPHILS % (MANUAL) 0 % (0-6); LYMPHOCYTES % (MANUAL) 5 % (13-45); MONOCYTES % (MANUAL) 6 % (3-13); SEGMENTED NEUTROPHILS % (MAN) 89 % (42-78); TOTAL CELLS COUNTED 100
[2019-05-06 10:35] LABS: POIKILOCYTOSIS SLIGHT
[2019-05-06 10:37] LABS: PLATELET COMMENT ADEQUATE
[2019-05-06] MEDS: CEFEPIME HCL 2 GM in DEXTROSE 5%-WATER 50 ML IV SCH ×2 (11:34→22:07)
[2019-05-06] MEDS: OXYCODONE HCL IR 5 MG TABLET NG PRN ×2 (11:36→17:58)
[2019-05-06] MEDS: METOPROLOL TARTRATE 25 MG TABLET PO SCH ×2 (11:38→21:57)
[2019-05-06] MEDS: FLUTICASONE NASAL SPRAY 50 MCG/SPRY 120 SPRAY/16 GM NASL SCH ×2 (11:48→22:08)
[2019-05-06] MEDS: CYCLOSPORINE 0.05% OPH EMULSIO 0.4 ML DROPERETTE OU SCH ×2 (12:01→22:08)
[2019-05-06 14:51] LABS: PATH REVIEW PATHOLOGIST REVIEWED
--- NOTE | 2019-05-06 17:39 | PDOC PROGRESS REPORT ---
Subjective Progress Note for:: 05/06/19 Subjective:: The patient is a 53-year-old male with a past medical history of IA, HTN, HLD, chronic respiratory failure (home O2 and tracheostomy dependent) related to remote history of tongue cancer, GERD, and tobacco dependence who was admitted 05/05/2019 for lingular pneumonia. Patient was seen on morning rounds. He was found resting in bed comfortably on room air. He reports that he continues to have a productive cough. He accidentally removed his tracheostomy device this morning; waiting for obturator from supply and is capable of self inserting. He reports that he removes his trach device multiple times during the day at home and is not currently in any distress related to removal. Overall he reports that he is feeling improved compared to his time of admission. He does complain of chronic pain and asked that his home oxycodone regiment be resumed. Otherwise he denies fever, chills, chest pain, palpitations, dyspnea, orthopnea, abdominal pain, nausea vomiting or diarrhea. He has no new questions or concerns at this time. No concerns per nursing. Reason For Visit: LEFT LINGULAR PNUOMONIA Physical Exam Vital Signs: Temp Pulse Resp BP Pulse Ox 98.7 F 96 18 104/70 100 05/06/19 07:34 05/06/19 08:05 05/06/19 08:05 05/06/19 07:34 05/06/19 08:05 Pulse Oximeter Continuous Start: 05/05/19 22:14 Freq: RTQ4 Status: Active Protocol: Document 05/06/19 08:05 [facility] [place]Rec[place] 05/06/19 09:09 [facility] [id number] Pulse Oximetry Assessment Oxygen Saturation (92-100) 100 Oxygen Delivery Method Room Air Equipment Usage Equipment in Use Continuous SpO2 Machine # N [id number] Intake & Output 05/05/19 05/06/19 05/07/19 06:59 06:59 06:59 Intake Total 4309 Output Total 750 Balance 3559 Weight 49.6 kg General appearance: PRESENT: no acute distress, cooperative, thin, well- developed, well-nourished Head exam: PRESENT: atraumatic, normocephalic Eye exam: PRESENT: conjunctiva pink, EOMI, PERRLA. ABSENT: scleral icterus Ear exam: PRESENT: normal external ear exam Mouth exam: PRESENT: moist Neck exam: PRESENT: tracheostomy. ABSENT: carotid bruit, JVD, lymphadenopathy, thyromegaly Respiratory exam: PRESENT: clear to auscultation true, symmetrical, unlabored. ABSENT: rales, rhonchi, wheezes Cardiovascular exam: PRESENT: RRR, +S1, +S2. ABSENT: diastolic murmur, rubs, systolic murmur Pulses: PRESENT: normal dorsalis pedis pul Vascular exam: PRESENT: normal capillary refill GI/Abdominal exam: PRESENT: normal bowel sounds, soft. ABSENT: distended, guarding, mass, organolmegaly, rebound, tenderness Rectal exam: PRESENT: deferred Extremities exam: PRESENT: full ROM. ABSENT: calf tenderness, clubbing, pedal edema Neurological exam: PRESENT: alert, awake, oriented to person, oriented to place, oriented to time, oriented to situation, CN II-XII grossly intact. ABSENT: motor sensory deficit Psychiatric exam: PRESENT: appropriate affect, normal mood. ABSENT: homicidal ideation, suicidal ideation Skin exam: PRESENT: dry, intact, warm. ABSENT: cyanosis, rash Results Laboratory Results: 05/06/19 05:51 05/05/19 05/05/19 05/05/19 19:42 19:42 19:42 WBC 17.5 H RBC 4.36 Hgb 14.5 Hct 42.5 MCV 97 MCH 33.2 MCHC 34.2 RDW 13.4 Plt Count 402 Seg Neutrophils % Not Reportable Lymphocytes % Not Reportable Monocytes % Not Reportable Eosinophils % Not Reportable Basophils % Not Reportable Absolute Neutrophils Not Reportable Absolute Lymphocytes Not Reportable Absolute Monocytes Not Reportable Absolute Eosinophils Not Reportable Absolute Basophils Not Reportable VBG pH VBG pCO2 VBG HCO3 VBG Base Excess Sodium 138.2 Potassium 4.0 Chloride 100 Carbon Dioxide 28 Anion Gap 10 BUN 16 Creatinine 0.53 Est GFR ( Amer) > 60 Est GFR (Non-Af Amer) > 60 Glucose 127 H Lactic Acid 1.5 Calcium 8.9 Magnesium Total Bilirubin 0.5 AST 31 ALT 35 Alkaline Phosphatase 133 H Total Protein 6.6 Albumin 3.8 Triglycerides Cholesterol LDL Cholesterol Direct VLDL Cholesterol HDL Cholesterol TSH Free T4 Free T3 pg/mL 05/05/19 05/05/19 05/06/19 19:42 19:42 05:51 WBC Cancelled RBC Cancelled Hgb Cancelled Hct Cancelled MCV Cancelled MCH Cancelled MCHC Cancelled RDW Cancelled Plt Count Cancelled Seg Neutrophils % Cancelled Lymphocytes % Cancelled Monocytes % Cancelled Eosinophils % Cancelled Basophils % Cancelled Absolute Neutrophils Cancelled Absolute Lymphocytes Cancelled Absolute Monocytes Cancelled Absolute Eosinophils Cancelled Absolute Basophils Cancelled VBG pH 7.36 VBG pCO2 55.5 VBG HCO3 30.3 VBG Base Excess 3.1 Sodium Potassium Chloride Carbon Dioxide Anion Gap BUN Creatinine Est GFR ( Amer) Est GFR (Non-Af Amer) Glucose Lactic Acid Calcium Magnesium Total Bilirubin AST ALT Alkaline Phosphatase Total Protein Albumin Triglycerides Cholesterol LDL Cholesterol Direct VLDL Cholesterol HDL Cholesterol TSH Free T4 1.09 Free T3 pg/mL 3.26 05/06/19 05/06/19 05:51 05:51 WBC RBC Hgb Hct MCV MCH MCHC RDW Plt Count Seg Neutrophils % Lymphocytes % Monocytes % Eosinophils % Basophils % Absolute Neutrophils Absolute Lymphocytes Absolute Monocytes Absolute Eosinophils Absolute Basophils VBG pH VBG pCO2 VBG HCO3 VBG Base Excess Sodium 138.8 Potassium 3.9 Chloride 105 Carbon Dioxide 29 Anion Gap 5 BUN 9 Creatinine 0.37 L Est GFR ( Amer) > 60 Est GFR (Non-Af Amer) > 60 Glucose 106 Lactic Acid Calcium 8.6 Magnesium 1.8 Total Bilirubin AST ALT Alkaline Phosphatase Total Protein Albumin Triglycerides 54 Cholesterol 83.30 LDL Cholesterol Direct 50 VLDL Cholesterol 11.0 HDL Cholesterol 30 L TSH 1.03 Free T4 Free T3 pg/mL Impressions: Chest X-Ray 05/05/19 19:28 IMPRESSION: In the appropriate clinical setting, findings are consistent with lingular pneumonia. Assessment and Plan - Diagnosis (1) Lingular pneumonia Is this a current diagnosis for this admission?: Yes Plan: Patient's left lingular pneumonia is community-acquired but complicated by the patient's apparent pre-illness use of doxycycline Blood and sputum cultures pending. Patient is admitted to the medical floor. He is empirically placed on IV Levaquin and cefepime. He is provided supplemental oxygen as needed to maintain oxygen saturations >90% He is provided scheduled and as needed nebulizer treatments. Mucomyst nebulizer treatment twice daily. Robitussin as needed. Continue home dose Flonase. (2) Acute and chronic respiratory failure with hypoxia Is this a current diagnosis for this admission?: Yes Plan: Resolved; patient now maintaining oxygen saturations in the high 90s on room air. Secondary to #1. (3) HLD (hyperlipidemia) Qualifiers: Hyperlipidemia type: unspecified Qualified Code(s): E78.5 - Hyperlipidemia, unspecified Is this a current diagnosis for this admission?: Yes Plan: Patient endorses history of hyperlipidemia. Lipid panel is acceptable other than HDL which is low at 30. Continue home dose atorvastatin. (4) HTN (hypertension) Qualifiers: Hypertension type: essential hypertension Qualified Code(s): I10 - Essential (primary) hypertension Is this a current diagnosis for this admission?: Yes Plan: Patient endorses history of hypertension. Blood pressures are actually somewhat soft; 107/79. We will continue home dose metoprolol IV hydralazine as needed for blood pressure control. (5) Hypothyroidism Qualifiers: Hypothyroidism type: unspecified Qualified Code(s): E03.9 - Hypothyroidism, unspecified Is this a current diagnosis for this admission?: Yes Plan: Patient endorses history of hypothyroidism. Thyroid panel is acceptable. Continue home dose levothyroxine. - Time Time Spent with patient: 25-34 minutes Medications reviewed and adjusted accordingly: Yes Anticipated discharge: Home Within: within 48 hours - Inpatient Certification Based on my medical assessment, after consideration of the patient's comorbidities, presenting symptoms, or acuity I expect that the services needed warrant INPATIENT care.: Yes I certify that my determination is in accordance with my understanding of Medicare's requirements for reasonable and necessary INPATIENT services [42 CFR 412.3e].: Yes Medical Necessity: Need For IV Fluids, Need for IV Antibiotics
--- NOTE | 2019-05-06 17:40 | Progress Note Acknowledgement ---
Progress Note Acknowledgement Progess Note Acknowledgement: I, the undersigned member of the medical staff with appropriate privileges and with supervisory authority over Akiko Russell, a [facility] practice allied health professional, acknowledge that I have reviewed the progress notes entered on this patient, and in my professional judgment believe that the assessment made and/or any care evidenced was appropriate
[2019-05-06] MEDS: LEVOFLOXACIN 750 MG/D5W RTU 750 MG/150 ML RTUPB IV SCH (17:58)
[2019-05-06] MEDS: DOCUSATE SODIUM 100 MG/10 ML UDC PO SCH (17:59)
[2019-05-06] MEDS: LEVALBUTEROL HCL NEB 0.63 MG/3 ML AMPUL NEB PRN (19:52)
[2019-05-06] MEDS: ATORVASTATIN CALCIUM 10 MG TABLET PO SCH (22:08)
[2019-05-07] MEDS: LEVALBUTEROL HCL NEB 1.25 MG/3 ML AMPUL NEB SCH ×4 (00:26→20:56)
[2019-05-07] MEDS: IPRATROPIUM BROMIDE 0.02% NEB 0.5 MG/2.5 ML AMPUL NEB SCH ×4 (00:26→20:56)
[2019-05-07] MEDS: OXYCODONE HCL IR 5 MG TABLET NG PRN ×3 (01:38→10:08)
[2019-05-07 04:04] LABS: HEMATOCRIT 31.5 % (37.9-51.0); HEMOGLOBIN 10.8 g/dL (13.5-17.0); MEAN CORPUSCULAR HEMOGLOBIN 33.1 pg (27.0-33.4); MEAN CORPUSCULAR HGB CONC 34.2 g/dL (32.0-36.0); MEAN CORPUSCULAR VOLUME 97 fl (80-97); PLATELET COUNT 336 10^3/uL (150-450); RED BLOOD COUNT 3.25 10^6/uL (4.35-5.55)
[2019-05-07 04:19] LABS: ANION GAP 7 (5-19); BLOOD UREA NITROGEN 6 mg/dL (7-20); CALCIUM 8.4 mg/dL (8.4-10.2); CARBON DIOXIDE 28 mmol/L (22-30); CHLORIDE 101 mmol/L (98-107); GLUCOSE 101 mg/dL (75-110); POTASSIUM 3.6 mmol/L (3.6-5.0); SODIUM 135.8 mmol/L (137-145)
[2019-05-07 04:39] LABS: ABSOLUTE LYMPHOCYTES# (MANUAL) 0.4 10^3/uL (0.5-4.7); ABSOLUTE MONOCYTES # (MANUAL) 0.7 10^3/uL (0.1-1.4); BASOPHILS % (MANUAL) 2 % (0-2); EOSINOPHILS % (MANUAL) 3 % (0-6); HYPOCHROMASIA 1+; LYMPHOCYTES % (MANUAL) 3 % (13-45); MONOCYTES % (MANUAL) 5 % (3-13); SEGMENTED NEUTROPHILS % (MAN) 87 % (42-78); TOTAL CELLS COUNTED 100
[2019-05-07 04:40] LABS: PLATELET COMMENT ADEQUATE
[2019-05-07] MEDS: HEPARIN SOD (PORCINE) 5,000 UNIT/ML 1 ML SYRINGE SUBCUT SCH ×3 (06:09→21:47)
[2019-05-07] MEDS: PANTOPRAZOLE SODIUM 40 MG PACKET.DR NG SCH (06:09)
[2019-05-07] MEDS: LEVOTHYROXINE SODIUM 0.05 MG TABLET PO SCH (06:09)
[2019-05-07] MEDS: ACETYLCYSTEINE 20% SOLN 800 MG/4 ML VIAL.NEB NEB SCH ×2 (08:22→19:41)
[2019-05-07] MEDS: RINGERS SOLUTION,LACTATED 1,000 ML IV PRN (08:35)
[2019-05-07] MEDS: FLUTICASONE NASAL SPRAY 50 MCG/SPRY 120 SPRAY/16 GM NASL SCH ×2 (10:01→21:44)
[2019-05-07] MEDS: CYCLOSPORINE 0.05% OPH EMULSIO 0.4 ML DROPERETTE OU SCH ×2 (10:02→21:47)
[2019-05-07] MEDS: CEFEPIME HCL 2 GM in DEXTROSE 5%-WATER 50 ML IV SCH ×2 (10:02→21:41)
[2019-05-07] MEDS: METOPROLOL TARTRATE 25 MG TABLET PO SCH ×2 (10:07→21:44)
[2019-05-07] MEDS: DOCUSATE SODIUM 100 MG/10 ML UDC PO SCH ×2 (10:08→19:30)
[2019-05-07] MEDS: MORPHINE SULFATE 10 MG/ML INJ IV PRN (14:55)
[2019-05-07 15:16] LABS: APPEARANCE,URINE CLEAR; BILIRUBIN,URINE NEGATIVE (NEGATIVE); COLOR,URINE STRAW; GLUCOSE, URINE NEGATIVE (NEGATIVE); KETONES,URINE NEGATIVE (NEGATIVE); LEUKOCYTE ESTERASE,URINE NEGATIVE (NEGATIVE); NITRITE,URINE NEGATIVE (NEGATIVE); PROTEIN,URINE NEGATIVE (NEGATIVE); URINE SPECIFIC GRAVITY 1.008; UROBILINOGEN,URINE NEGATIVE mg/dL (<2.0)
[2019-05-07] MEDS: LEVOFLOXACIN 750 MG/D5W RTU 750 MG/150 ML RTUPB IV SCH (17:36)
--- NOTE | 2019-05-07 19:33 | PDOC PROGRESS REPORT ---
Subjective Progress Note for:: 05/07/19 Subjective:: The patient is a 53-year-old male with a past medical history of [place], HTN, HLD, chronic respiratory failure (home O2 and tracheostomy dependent) related to remote history of tongue cancer, GERD, and tobacco dependence who was admitted 05/05/2019 for lingular pneumonia. Patient was seen on morning rounds. He was found resting in bed comfortably on room air. He reports that he continues to have a productive cough; he is frustrated that he is not able to expectorate his sputum but declines offer for deep suction. Overall he reports that he is feeling improved compared to his time of admission. Otherwise he denies fever, chills, chest pain, palpitations, dyspnea, orthopnea, abdominal pain, nausea vomiting or diarrhea. He has no new questions or concerns at this time. No concerns per nursing. Reason For Visit: LEFT LINGULAR PNUOMONIA Physical Exam Vital Signs: Temp Pulse Resp BP Pulse Ox 97.8 F 105 H 16 124/73 96 05/07/19 15:48 05/07/19 15:48 05/07/19 15:27 05/07/19 15:48 05/07/19 15:27 Pulse Oximeter Continuous Start: 05/05/19 22:14 Freq: RTQ4 Status: Active Protocol: Document 05/07/19 15:27 [facility] (Rec: 05/07/19 15:29 [facility] [id number]) Pulse Oximetry Assessment Oxygen Saturation (92-100) 96 Oxygen Delivery Method Room Air Fraction of Inspired Oxygen (FIO2) 21 Equipment Usage Equipment in Use Continuous SpO2 Machine # N1 Intake & Output 05/06/19 05/07/19 05/08/19 06:59 06:59 06:59 Intake Total 4309 4082 357 Output Total 750 1100 1525 Balance 3559 2982 -1168 Weight 49.6 kg 50.5 kg General appearance: PRESENT: no acute distress, thin, well-developed Head exam: PRESENT: atraumatic, normocephalic Eye exam: PRESENT: conjunctiva pink, EOMI, PERRLA. ABSENT: scleral icterus Ear exam: PRESENT: normal external ear exam Mouth exam: PRESENT: moist, tongue midline Neck exam: PRESENT: tracheostomy. ABSENT: carotid bruit, JVD, lymphadenopathy, thyromegaly Respiratory exam: PRESENT: retraction, symmetrical, unlabored. ABSENT: rales, rhonchi, wheezes Cardiovascular exam: PRESENT: RRR, +S1, +S2. ABSENT: diastolic murmur, rubs, systolic murmur Pulses: PRESENT: normal dorsalis pedis pul Vascular exam: PRESENT: normal capillary refill GI/Abdominal exam: PRESENT: normal bowel sounds, soft. ABSENT: distended, guarding, mass, organolmegaly, rebound, tenderness Rectal exam: PRESENT: deferred Extremities exam: PRESENT: full ROM. ABSENT: calf tenderness, clubbing, pedal edema Neurological exam: PRESENT: alert, awake, oriented to person, oriented to place, oriented to time, oriented to situation, CN II-XII grossly intact. ABSENT: motor sensory deficit Psychiatric exam: PRESENT: appropriate affect, normal mood. ABSENT: homicidal ideation, suicidal ideation Skin exam: PRESENT: dry, intact, warm. ABSENT: cyanosis, rash Results Laboratory Results: 05/07/19 03:25 05/07/19 03:25 05/07/19 05/07/19 05/07/19 03:25 03:25 14:55 WBC 13.0 H RBC 3.25 L Hgb 10.8 L Hct 31.5 L MCV 97 MCH 33.1 MCHC 34.2 RDW 13.0 Plt Count 336 Seg Neutrophils % Not Reportable Lymphocytes % Not Reportable Monocytes % Not Reportable Eosinophils % Not Reportable Basophils % Not Reportable Absolute Neutrophils Not Reportable Absolute Lymphocytes Not Reportable Absolute Monocytes Not Reportable Absolute Eosinophils Not Reportable Absolute Basophils Not Reportable Sodium 135.8 L Potassium 3.6 Chloride 101 Carbon Dioxide 28 Anion Gap 7 BUN 6 L Creatinine 0.35 L Est GFR ( Amer) > 60 Est GFR (Non-Af Amer) > 60 Glucose 101 Calcium 8.4 Magnesium 1.8 Urine Color STRAW Urine Appearance CLEAR Urine pH 9.0 Ur Specific Mayer 1.008 Urine Protein NEGATIVE Urine Glucose (UA) NEGATIVE Urine Ketones NEGATIVE Urine Blood NEGATIVE Urine Nitrite NEGATIVE Ur Leukocyte Esterase NEGATIVE Urine WBC (Auto) 0 Urine RBC (Auto) 0 Impressions: Chest X-Ray 05/05/19 19:28 IMPRESSION: In the appropriate clinical setting, findings are consistent with lingular pneumonia. Assessment and Plan - Diagnosis (1) Lingular pneumonia Is this a current diagnosis for this admission?: Yes Plan: Patient's left lingular pneumonia is community-acquired but complicated by the patient's apparent pre-illness use of doxycycline Blood cultures have no growth at 24 hours. Sputum cultures pending. Patient is admitted to the medical floor. He is empirically placed on IV Levaquin and cefepime. He is provided supplemental oxygen as needed to maintain oxygen saturations >90% He is provided scheduled and as needed nebulizer treatments; will increase frequency of scheduled nebs today. Mucomyst nebulizer treatment twice daily. Robitussin q6 hours scheduled. Continue home dose Flonase. Twice daily chest physiotherapy. (2) Acute and chronic respiratory failure with hypoxia Is this a current diagnosis for this admission?: Yes Plan: Resolved; patient now maintaining oxygen saturations in the high 90s on room air. Secondary to #1. (3) HLD (hyperlipidemia) Qualifiers: Hyperlipidemia type: unspecified Qualified Code(s): E78.5 - Hyperlipidemia, unspecified Is this a current diagnosis for this admission?: Yes Plan: Patient endorses history of hyperlipidemia. Lipid panel is acceptable other than HDL which is low at 30. Continue home dose atorvastatin. (4) HTN (hypertension) Qualifiers: Hypertension type: essential hypertension Qualified Code(s): I10 - Essential (primary) hypertension Is this a current diagnosis for this admission?: Yes Plan: Patient endorses history of hypertension. Blood pressures are acceptable; 124/73 We will continue home dose metoprolol IV hydralazine as needed for blood pressure control. (5) Hypothyroidism Qualifiers: Hypothyroidism type: unspecified Qualified Code(s): E03.9 - Hypothyroidism, unspecified Is this a current diagnosis for this admission?: Yes Plan: Patient endorses history of hypothyroidism. Thyroid panel is acceptable. Continue home dose levothyroxine. - Time Time Spent with patient: 25-34 minutes Medications reviewed and adjusted accordingly: Yes Anticipated discharge: Home Within: within 48 hours
[2019-05-07] MEDS: LEVALBUTEROL HCL NEB 0.63 MG/3 ML AMPUL NEB PRN (19:41)
[2019-05-07] MEDS: ATORVASTATIN CALCIUM 10 MG TABLET PO SCH (21:44)
[2019-05-08] MEDS: LEVALBUTEROL HCL NEB 1.25 MG/3 ML AMPUL NEB SCH ×4 (02:16→19:57)
[2019-05-08] MEDS: IPRATROPIUM BROMIDE 0.02% NEB 0.5 MG/2.5 ML AMPUL NEB SCH ×4 (02:16→19:57)
[2019-05-08 05:14] LABS: HEMATOCRIT 35.3 % (37.9-51.0); HEMOGLOBIN 12.2 g/dL (13.5-17.0); MEAN CORPUSCULAR HEMOGLOBIN 33.2 pg (27.0-33.4); MEAN CORPUSCULAR HGB CONC 34.4 g/dL (32.0-36.0); MEAN CORPUSCULAR VOLUME 96 fl (80-97); PLATELET COUNT 347 10^3/uL (150-450); RED BLOOD COUNT 3.67 10^6/uL (4.35-5.55); RED CELL DISTRIBUTION WIDTH 12.9 % (11.5-14.0); WHITE BLOOD COUNT 11.6 10^3/uL (4.0-10.5)
[2019-05-08 05:33] LABS: ANION GAP 7 (5-19); BLOOD UREA NITROGEN 3 mg/dL (7-20); CALCIUM 8.9 mg/dL (8.4-10.2); CARBON DIOXIDE 29 mmol/L (22-30); CHLORIDE 103 mmol/L (98-107); GLUCOSE 113 mg/dL (75-110); POTASSIUM 3.8 mmol/L (3.6-5.0); SODIUM 138.7 mmol/L (137-145)
[2019-05-08] MEDS: HEPARIN SOD (PORCINE) 5,000 UNIT/ML 1 ML SYRINGE SUBCUT SCH ×3 (05:47→21:49)
[2019-05-08] MEDS: LEVOTHYROXINE SODIUM 0.05 MG TABLET PO SCH (05:47)
[2019-05-08] MEDS: PANTOPRAZOLE SODIUM 40 MG PACKET.DR NG SCH (05:47)
[2019-05-08 07:11] LABS: ABSOLUTE LYMPHOCYTES# (MANUAL) 1.3 10^3/uL (0.5-4.7); ABSOLUTE MONOCYTES # (MANUAL) 0.6 10^3/uL (0.1-1.4); BAND NEUTROPHILS % (MANUAL) 3 % (3-5); BASOPHILS % (MANUAL) 0 % (0-2); EOSINOPHILS % (MANUAL) 0 % (0-6); LYMPHOCYTES % (MANUAL) 11 % (13-45); MONOCYTES % (MANUAL) 5 % (3-13); RBC MORPHOLOGY COMMENT NORMO-CYTIC/CHROMIC; SEGMENTED NEUTROPHILS % (MAN) 81 % (42-78); TOTAL CELLS COUNTED 100
[2019-05-08 07:52] LABS: PLATELET COMMENT ADEQUATE
[2019-05-08] MEDS: ACETYLCYSTEINE 20% SOLN 800 MG/4 ML VIAL.NEB NEB SCH ×2 (08:29→19:57)
[2019-05-08] MEDS ORDERED: SCOPOLAMINE HYDROBROMIDE 1.5 MG PATCH.TD72 TD SCH (10:00)
[2019-05-08] MEDS: METOPROLOL TARTRATE 25 MG TABLET PO SCH ×2 (10:06→21:47)
[2019-05-08] MEDS: CYCLOSPORINE 0.05% OPH EMULSIO 0.4 ML DROPERETTE OU SCH ×2 (10:06→22:03)
[2019-05-08] MEDS: CEFEPIME HCL 2 GM in DEXTROSE 5%-WATER 50 ML IV SCH ×2 (10:06→21:49)
[2019-05-08] MEDS: DOCUSATE SODIUM 100 MG/10 ML UDC PO SCH ×2 (10:07→18:22)
[2019-05-08] MEDS: FLUTICASONE NASAL SPRAY 50 MCG/SPRY 120 SPRAY/16 GM NASL SCH ×2 (10:07→21:49)
[2019-05-08] MEDS: OXYCODONE HCL IR 5 MG TABLET NG PRN ×2 (10:28→16:10)
[2019-05-08] MEDS: MORPHINE SULFATE 10 MG/ML INJ IV PRN ×2 (13:24→18:21)
[2019-05-08] MEDS ORDERED: BISACODYL 10 MG SUPP.RECT PR PRN (17:45)
[2019-05-08] MEDS ORDERED: MAGNESIUM HYDROXIDE SUSP 30 ML UDCUP PO PRN (17:45)
--- NOTE | 2019-05-08 17:45 | PDOC PROGRESS REPORT ---
Subjective Progress Note for:: 05/08/19 Subjective:: The patient is a 53-year-old male with a past medical history of [place], HTN, HLD, chronic respiratory failure (home O2 and tracheostomy dependent) related to remote history of tongue cancer, GERD, and tobacco dependence who was admitted 05/05/2019 for lingular pneumonia. Patient was seen on afternoon rounds. He was found resting in bed comfortably on room air. He reports that he continues to have a productive cough; though this is somewhat improved today and he is having an easier time clearing sputum from tracheostomy. He denies fever, chills, chest pain, palpitations, dyspnea, orthopnea, abdominal pain, nausea vomiting or diarrhea. He has no new questions or concerns at this time. No concerns per nursing. Reason For Visit: LEFT LINGULAR PNUOMONIA Physical Exam Vital Signs: Temp Pulse Resp BP Pulse Ox 98.3 F 105 H 20 107/80 95 05/08/19 12:00 05/08/19 13:49 05/08/19 13:49 05/08/19 12:00 05/08/19 15:25 Pulse Oximeter Continuous Start: 05/05/19 22:14 Freq: RTQ4 Status: Active Protocol: Document 05/08/19 15:25 [facility] (Rec: 05/08/19 16:37 [facility] [id number]) Pulse Oximetry Assessment Oxygen Saturation (92-100) 95 Oxygen Delivery Method Room Air Fraction of Inspired Oxygen (FIO2) 21 Equipment Usage Equipment in Use Continuous SpO2 Machine # 1 Intake & Output 05/07/19 05/08/19 05/09/19 06:59 06:59 06:59 Intake Total 4082 904 640 Output Total 1100 3225 950 Balance 2982 -2321 -310 Weight 50.5 kg 49.7 kg General appearance: PRESENT: no acute distress, cooperative, thin, well- developed Head exam: PRESENT: atraumatic, normocephalic Eye exam: PRESENT: conjunctiva pink, EOMI, PERRLA. ABSENT: scleral icterus Ear exam: PRESENT: normal external ear exam Mouth exam: PRESENT: moist, tongue midline Neck exam: PRESENT: tracheostomy. ABSENT: carotid bruit, JVD, lymphadenopathy, thyromegaly Respiratory exam: PRESENT: clear to auscultation true, symmetrical, unlabored. ABSENT: rales, rhonchi, wheezes Cardiovascular exam: PRESENT: RRR, +S1, +S2, tachycardia. ABSENT: diastolic murmur, rubs, systolic murmur Pulses: PRESENT: normal dorsalis pedis pul Vascular exam: PRESENT: normal capillary refill GI/Abdominal exam: PRESENT: normal bowel sounds, soft. ABSENT: distended, guarding, mass, organolmegaly, rebound, tenderness Rectal exam: PRESENT: deferred Extremities exam: PRESENT: full ROM. ABSENT: calf tenderness, clubbing, pedal edema Neurological exam: PRESENT: alert, awake, oriented to person, oriented to place, oriented to time, oriented to situation, CN II-XII grossly intact. ABSENT: motor sensory deficit Psychiatric exam: PRESENT: depressed, flat affect, normal mood. ABSENT: homicidal ideation, suicidal ideation Skin exam: PRESENT: dry, intact, warm. ABSENT: cyanosis, rash Results Laboratory Results: 05/08/19 04:57 05/08/19 04:57 05/08/19 05/08/19 04:57 04:57 WBC 11.6 H RBC 3.67 L Hgb 12.2 L Hct 35.3 L MCV 96 MCH 33.2 MCHC 34.4 RDW 12.9 Plt Count 347 Seg Neutrophils % Not Reportable Lymphocytes % Not Reportable Monocytes % Not Reportable Eosinophils % Not Reportable Basophils % Not Reportable Absolute Neutrophils Not Reportable Absolute Lymphocytes Not Reportable Absolute Monocytes Not Reportable Absolute Eosinophils Not Reportable Absolute Basophils Not Reportable Sodium 138.7 Potassium 3.8 Chloride 103 Carbon Dioxide 29 Anion Gap 7 BUN 3 L Creatinine 0.30 L Est GFR ( Amer) > 60 Est GFR (Non-Af Amer) > 60 Glucose 113 H Calcium 8.9 Magnesium 1.8 Impressions: Chest X-Ray 05/05/19 19:28 IMPRESSION: In the appropriate clinical setting, findings are consistent with lingular pneumonia. Assessment and Plan - Diagnosis (1) Lingular pneumonia Is this a current diagnosis for this admission?: Yes Plan: Improved; WBC trending down, TMax 99.1 in last 48 hrs, now maintaining saturations on room air with clear lung sounds. Patient's left lingular pneumonia is community-acquired but complicated by the patient's apparent pre-illness use of doxycycline Blood cultures have no growth at 48 hours. Sputum cultures pending. Patient is admitted to the medical floor. He is empirically placed on IV Levaquin and cefepime. He is provided supplemental oxygen as needed to maintain oxygen saturations >90% He is provided scheduled and as needed nebulizer treatments. Mucomyst nebulizer treatment twice daily. Robitussin q6 hours scheduled. Continue home dose Flonase. Twice daily chest physiotherapy. (2) Acute and chronic respiratory failure with hypoxia Is this a current diagnosis for this admission?: Yes Plan: Resolved; patient now maintaining oxygen saturations in the high 90s on room air. Secondary to #1. (3) HLD (hyperlipidemia) Qualifiers: Hyperlipidemia type: unspecified Qualified Code(s): E78.5 - Hyperlipidemia, unspecified Is this a current diagnosis for this admission?: Yes Plan: Patient endorses history of hyperlipidemia. Lipid panel is acceptable other than HDL which is low at 30. Continue home dose atorvastatin. (4) HTN (hypertension) Qualifiers: Hypertension type: essential hypertension Qualified Code(s): I10 - Essential (primary) hypertension Is this a current diagnosis for this admission?: Yes Plan: Patient endorses history of hypertension. Blood pressures are acceptable; 107/80 We will continue home dose metoprolol IV hydralazine as needed for blood pressure control. (5) Hypothyroidism Qualifiers: Hypothyroidism type: unspecified Qualified Code(s): E03.9 - Hypothyroidism, unspecified Is this a current diagnosis for this admission?: Yes Plan: Patient endorses history of hypothyroidism. Thyroid panel is acceptable. Continue home dose levothyroxine. - Time Time Spent with patient: 15-24 minutes Medications reviewed and adjusted accordingly: Yes Anticipated discharge: Home Within: within 48 hours
[2019-05-08] MEDS: LEVOFLOXACIN 750 MG/D5W RTU 750 MG/150 ML RTUPB IV SCH (18:22)
[2019-05-08] MEDS: ATORVASTATIN CALCIUM 10 MG TABLET PO SCH (21:48)
[2019-05-08] MEDS: GUAIFENESIN SYRP 200 MG/10 ML UDC GT SCH (22:04)
[2019-05-09] MEDS: LEVALBUTEROL HCL NEB 1.25 MG/3 ML AMPUL NEB SCH ×3 (02:17→14:21)
[2019-05-09] MEDS: IPRATROPIUM BROMIDE 0.02% NEB 0.5 MG/2.5 ML AMPUL NEB SCH ×3 (02:17→14:21)
[2019-05-09 05:53] LABS: HEMATOCRIT 35.3 % (37.9-51.0); HEMOGLOBIN 12.5 g/dL (13.5-17.0); MEAN CORPUSCULAR HEMOGLOBIN 33.9 pg (27.0-33.4); MEAN CORPUSCULAR HGB CONC 35.3 g/dL (32.0-36.0); MEAN CORPUSCULAR VOLUME 96 fl (80-97); PLATELET COUNT 363 10^3/uL (150-450); RED BLOOD COUNT 3.68 10^6/uL (4.35-5.55); RED CELL DISTRIBUTION WIDTH 12.9 % (11.5-14.0); WHITE BLOOD COUNT 8.1 10^3/uL (4.0-10.5)
[2019-05-09] MEDS: LEVOTHYROXINE SODIUM 0.05 MG TABLET PO SCH (06:36)
[2019-05-09] MEDS: GUAIFENESIN SYRP 200 MG/10 ML UDC GT SCH ×3 (06:36→13:28)
[2019-05-09] MEDS: HEPARIN SOD (PORCINE) 5,000 UNIT/ML 1 ML SYRINGE SUBCUT SCH ×2 (06:36→16:15)
[2019-05-09] MEDS: PANTOPRAZOLE SODIUM 40 MG PACKET.DR NG SCH (06:36)
[2019-05-09] MEDS: ACETYLCYSTEINE 20% SOLN 800 MG/4 ML VIAL.NEB NEB SCH (08:13)
[2019-05-09] MEDS: MORPHINE SULFATE 10 MG/ML INJ IV PRN (09:03)
[2019-05-09] MEDS: FLUTICASONE NASAL SPRAY 50 MCG/SPRY 120 SPRAY/16 GM NASL SCH ×2 (09:03→09:08)
[2019-05-09] MEDS: CYCLOSPORINE 0.05% OPH EMULSIO 0.4 ML DROPERETTE OU SCH ×2 (09:04→09:09)
[2019-05-09] MEDS: METOPROLOL TARTRATE 25 MG TABLET PO SCH (09:04)
[2019-05-09] MEDS: DOCUSATE SODIUM 100 MG/10 ML UDC PO SCH (09:04)
[2019-05-09] MEDS ORDERED: LEVOFLOXACIN 750 MG TABLET PO SCH (10:00)
[2019-05-09] MEDS: OXYCODONE HCL IR 5 MG TABLET NG PRN (13:28)
[2019-05-09] MEDS ORDERED: NA PHOS,M-B/NA PHOS,DI-BA (ADULT) 133 ML ENEMA PR ONE (14:06)
[2019-05-09] MEDS ORDERED: PROMETHAZINE HCL INJ 25 MG/1 ML VIAL IV ONE (15:00)
[2019-05-09 15:40] VITALS: BP 96/64
--- NOTE | 2019-05-13 13:48 | PDOC DISCHARGE SUMMARY ---
General - Admit/Disc Date/PCP Admission Date/Primary Care Provider: 05/05/19 21:26 Discharge Date: 05/09/19 - Discharge Diagnosis (1) Lingular pneumonia Is this a current diagnosis for this admission?: Yes Summary: Improved; WBC trending down, afebrile >48 hrs, now maintaining saturations on room air with clear lung sounds. Patient's left lingular pneumonia is community-acquired but complicated by the patient's apparent pre-illness use of doxycycline Blood cultures have no growth at 5 days. Sputum cultures grew klebsiella sensitive to Levaquin. Patient was admitted to the medical floor and empirically placed on IV Levaquin and cefepime. He was supported with supplemental oxygen and nebulizer treatments. Mucomyst nebs were provided twice daily to assist w/ tenacious spu bird. Pulmonary toilet was encouraged with scheduled robitussin, position change/ambulation, and twice daily chest physiotherapy. The patient's symptoms gradually improved and he is now requesting discharge to home. Patient was discharged to home, in stable condition, to the care of family members. He declined home health services. He is advised to follow up with his primary care provider within 1 week and to return to the emergency department as needed for concerning symptoms. (2) Acute and chronic respiratory failure with hypoxia Is this a current diagnosis for this admission?: Yes Summary: Resolved; patient now maintaining oxygen saturations in the high 90s on room air. Secondary to #1. (3) HLD (hyperlipidemia) Is this a current diagnosis for this admission?: Yes Summary: Patient endorses history of hyperlipidemia. Lipid panel is acceptable other than HDL which is low at 30. Continue home dose atorvastatin. (4) HTN (hypertension) Is this a current diagnosis for this admission?: Yes Summary: Patient endorses history of hypertension. Blood pressures are acceptable. We will continue home dose metoprolol (5) Hypothyroidism Is this a current diagnosis for this admission?: Yes Summary: Patient endorses history of hypothyroidism. Thyroid panel is acceptable. Continue home dose levothyroxine. - Additional Information Resuscitation Status: Full Code Discharge Diet: Tube Feeding (Comments) Discharge Activity: Activity As Tolerated, Balance Activity w/Rest Prescriptions: Ipratropium/Albuterol Sulfate [Duoneb 3 ml Ampul] 3 ml NEB RTQ4HP PRN #120 vial.neb PRN Reason: Levofloxacin [Levaquin 750 mg Tablet] 750 mg PO DAILY #4 tablet Nebulizer [Nebulizer Machine] 1 each ASDIR PRN #1 kit PRN Reason: Home Medications: Docusate Sodium [Colace 100 mg Capsule] 100 mg PO BID capsule 08/28/18 Fluticasone Propionate [Flonase Nasal Holderness 50 Mcg/Holderness 16 gm] 2 spray NASL Q12 30 Days #120 sprays 08/28/18 Levothyroxine Sodium [Synthroid 0.05 mg Tablet] 0.05 mg PO Q6AM 30 Days #30 tablet 08/28/18 Metoprolol Tartrate [Lopressor 25 mg Tablet] 12.5 mg PO Q12 08/28/18 Nitroglycerin [Nitrostat 0.4 mg (1/150 Gr) Tabs 25/Bottle] 0.4 mg PO Q5MP PRN 08/28/18 Scopolamine [Transderm-Scop] 1 each TD Q3DAYS #7 patch.td.3 08/28/18 Atorvastatin Calcium [Lipitor 10 mg Tablet] 10 mg PO QHS 05/05/19 Lactulose 30 ml NG DAILYP PRN 05/05/19 Oxycodone HCl 15 mg NG Q4HP PRN 05/05/19 Pantoprazole Sodium [Protonix [address] Packet] 40 mg NG Q6AM 05/05/19 Acetaminophen [Tylenol 325 mg Tablet] 650 mg PO Q4HP PRN 05/06/19 Aspirin [Aspirin 81 mg Chewable Tablet] 81 mg PO DAILY 05/06/19 Acetaminophen [Tylenol 325 mg Tablet] 650 mg GT Q4HP PRN tablet 05/09/19 Guaifenesin [Robitussin Syrup 200 mg/10 ml Ud Cup] 200 mg GT Q6 udc 05/09/19 Ibuprofen [Motrin 800 mg Tablet] 800 mg GT Q6HP PRN tablet 05/09/19 Ipratropium/Albuterol Sulfate [Duoneb 3 ml Ampul] 3 ml NEB RTQ4HP PRN #120 vial.neb 05/09/19 Levofloxacin [Levaquin 750 mg Tablet] 750 mg PO DAILY #4 tablet 05/09/19 Nebulizer [Nebulizer Machine] 1 each ASDIR PRN #1 kit 05/09/19 History of Present Illness History of Present Illness: Per H&P by Dr. Franco: CALLIE KELLY is a 53 year old male who presented to the emergency room with a 1 day history of cough. 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 He noted a progressively worsening productive cough beginning on the day prior to admission. The cough did become severe and was productive of purulent sputum through his tracheostomy tube. The cough was accompanied by the progressively worsening symptoms of generalized weakness and dyspnea at rest. The patient has been taking doxycycline orally at home on a daily basis, for indication(s) that are uncertain. Because of his severe cough and worsening condition his family called EMS and upon their arrival he was found to be febrile with an O2 sat of 93% on room air. He denies prior similar episodes and has not identified any aggravating or ameliorating factors for his cough. In the emergency room he was found to be febrile and was noted to have a left lingular pneumonia by chest x-ray. He was subsequently admitted to the hospital for further evaluation and treatment. Physical Exam Vital Signs: Temp Pulse Resp BP Pulse Ox 97.5 F 87 16 96/64 L 96 05/09/19 15:40 05/09/19 15:40 05/09/19 15:40 05/09/19 15:40 05/09/19 15:40 Pulse Oximeter Continuous Start: 05/05/19 22:14 Freq: RTQ4 Status: Discharge Protocol: Document 05/09/19 16:00 [facility] (Rec: 05/09/19 17:56 [facility] [id number]) Pulse Oximetry Assessment Equipment Usage Equipment Discontinued Continuous SpO2 Machine # 1 General appearance: PRESENT: no acute distress, thin, well-developed, well- nourished Head exam: PRESENT: atraumatic, normocephalic Eye exam: PRESENT: conjunctiva pink, EOMI, PERRLA. ABSENT: scleral icterus Ear exam: PRESENT: normal external ear exam Mouth exam: PRESENT: moist, tongue midline Neck exam: PRESENT: tracheostomy. ABSENT: carotid bruit, JVD, lymphadenopathy, thyromegaly Respiratory exam: PRESENT: clear to auscultation true, symmetrical, unlabored. ABSENT: rales, wheezes Cardiovascular exam: PRESENT: RRR, +S1, +S2. ABSENT: diastolic murmur, rubs, systolic murmur Pulses: PRESENT: normal dorsalis pedis pul Vascular exam: PRESENT: normal capillary refill GI/Abdominal exam: PRESENT: normal bowel sounds, soft, other - PEG. ABSENT: distended, guarding, mass, organolmegaly, rebound, tenderness Rectal exam: PRESENT: deferred Extremities exam: PRESENT: full ROM. ABSENT: calf tenderness, clubbing, pedal edema Neurological exam: PRESENT: alert, awake, oriented to person, oriented to place, oriented to time, oriented to situation, CN II-XII grossly intact. ABSENT: motor sensory deficit Psychiatric exam: PRESENT: appropriate affect, normal mood. ABSENT: homicidal ideation, suicidal ideation Skin exam: PRESENT: dry, intact, warm. ABSENT: cyanosis, rash Results Laboratory Results: 05/09/19 05:07 05/08/19 04:57 Impressions: Chest X-Ray 05/05/19 19:28 IMPRESSION: In the appropriate clinical setting, findings are consistent with lingular pneumonia. Qualifiers - * PATIENT BEING DISCHARGED WITH ANY OF THE FOLLOWING DIAGNOSIS: No Acute Heart Failure - Is this a Heart Failure Patient?: No Plan Discharge Plan: Follow up with your primary care provider within 1 week. Take your antibiotics as prescribed. Use the nebulizer machine and medication as needed for shortness of breath and wheezing. Return to the emergency department as needed for concerning symptoms. Time Spent: Greater than 30 Minutes
== END 2019-05-09 16:31 | disposition home or self-care (01) | DRG 177 ==
LOC: ER 19:26 → EH 21:26 → 5 23:16 → 4W 05-07 18:25
PROVIDERS: ADMIT Emergency Medicine; ATTEND Emergency Medicine
DX: J15.0 Pneumonia due to Klebsiella pneumoniae (principal); J96.21 Acute and chronic respiratory failure with hypoxia; C78.39 Secondary malignant neoplasm of other respiratory organs; E44.0 Moderate protein-calorie malnutrition; Z93.0 Tracheostomy status; C02.9 Malignant neoplasm of tongue, unspecified; E78.5 Hyperlipidemia, unspecified; I10 Essential (primary) hypertension; I73.9 Peripheral vascular disease, unspecified; E03.9 Hypothyroidism, unspecified; K21.9 Gastro-esophageal reflux disease without esophagitis; I25.2 Old myocardial infarction; Z99.81 Dependence on supplemental oxygen; Z87.891 Personal history of nicotine dependence; Z82.49 Family history of ischemic heart disease and other diseases of the circulatory system; Z79.899 Other long term (current) drug therapy; Z79.1 Long term (current) use of non-steroidal anti-inflammatories (NSAID)
CPT/HCPCS: 36415; 71045; 80048; 80053; 80061; 81001; 82803; 83605; 83735; 84439; 84443; 84481; 85025; 85027; 87040; 87070; 87186; 87205; 93005; 93010; 94640; 94668; 94762; 96365; 99285; J0692; J1644; J1956; J2270; J3490; J7060; J7120; J7614

== ENCOUNTER 2019-06-12 14:09 | Emergency (ER) | payer MEDICAID ==
[2019-06-12] MEDS ORDERED: NORMAL SALINE 1000 ML 1,000 ML IV ONE (14:32)
--- NOTE | 2019-06-12 14:44 | ER Document Report ---
ED General - General Stated Complaint: REPLACE TRACH Time Seen by Provider: 06/12/19 14:31 Primary Care Provider: GREG WILKINSON MD [Primary Care Provider] - Follow up as needed TRAVEL OUTSIDE OF THE [place] IN LAST 30 DAYS: No - HPI Notes: Patient is a 54-year-old male that presents to the emergency department for chief complaint of altered mental status and fall. Family called EMS for patient at 1 PM today because he became unresponsive after a fall. They told EMS he was getting up to clean his tracheostomy and had removed it so that it could be cleaned. Patient then fell and did hit the ground. The fall was unwitnessed but when family came in the room he was unresponsive. Family put him into the bed and called EMS. EMS states when they arrived patient was awake but appeared confused and then became severely combative. He was moving all extremities and had reported strength in all ext remities. Patient is nonverbal at baseline because of his history of throat cancer and tracheostomy. They report the tracheostomy has been present for at least 6 months. He is currently getting infusions for the his cancer. EMS denies any substance abuse paraphernalia on scene. Past Medical History: Throat cancer Past Surgical History: Colostomy Social History: History of alcohol use. Lives at home Family History: Reviewed and noncontributory for presenting illness Allergies: Reviewed, see documented allergy list. REVIEW OF SYSTEMS: Unable to obtain because of acuity of condition PHYSICAL EXAMINATION: Vital signs reviewed, nursing noted reviewed. GENERAL: Unresponsive, thin HEAD: Atraumatic, normocephalic. EYES: Eyes appear normal, extraocular movements intact, sclera anicteric, conjunctiva are normal. ENT: No facial bone fluctuance, tracheostomy with mild bleeding and copious secretions, nares patent, dry mucous membranes. NECK: Flexion contracture, supple without lymphadenopathy LUNGS: Breath sounds coarse to auscultation bilaterally and equal. Tachypneic HEART: Tachycardic rate and regular rhythm without murmurs ABDOMEN: Soft No masses appreciated. Back: No ecchymosis, no spinal deformity EXTREMITIES: Pelvis stable, no long bone deformity, no pitting or edema. NEUROLOGICAL: GCS 3. Unresponsive SKIN: Warm, Dry, normal turgor, no ecchymosis or lacerations - Related Data Allergies/Adverse Reactions: No Known Allergies Allergy (Verified 05/05/19 22:13) Past Medical History - Social History Smoking Status: Former Smoker Family History: Hypertension - Past Medical History Cardiac Medical History: Reports: Hx Heart Attack - Patient reports history of myocardial infarction, Hx Hypercholesterolemia, Hx Hypertension, Hx Peripheral Vascular Disease Pulmonary Medical History: Reports: Hx Respiratory Failure - Uses O2 per tracheostomy collar at home Neurological Medical History: Denies: Hx Seizures Endocrine Medical History: Reports: Hx Hypothyroidism. Denies: Hx Diabetes Mellitus Type 1, Hx Diabetes Mellitus Type 2, Hx Hyperthyroidism Renal/ Medical History: Denies: Hx Peritoneal Dialysis GI Medical History: Reports: Hx Gastroesophageal Reflux Disease. Denies: Hx Cirrhosis, Hx Crohn's Disease, Hx Hepatitis, Hx Ulcerative Colitis Musculoskeletal Medical History: Denies Hx Arthritis, Denies Hx Gout Skin Medical History: Denies Hx Eczema, Denies Hx Psoriasis Infectious Medical History: Denies: Hx Hepatitis Past Surgical History: Reports: Hx Oral Surgery - Tongue cancer removed, Hx Vascular Surgery - Stents, Other - Head and neck dissection of malignancy and esophagectomy, tracheostomy Physical Exam - Vital signs Vitals: Pulse Ox 100 06/12/19 15:21 Course - Re-evaluation Re-evalutation: 06/12/19 16:27 Vitals reviewed per nursing notes reviewed. Patient presented by EMS with nonrebreather over his tracheostomy. He had copious secretions and bleeding from his tracheostomy. I did attempt to place a size 6 Shiley without success. I was however successful in placing a 6.0 ET tube which was confirmed with chest x-ray. Patient was unresponsive with a GCS of 3 at presentation because of a dose of ketamine given by EMS for combative behavior. Patient has been monitored in the emergency room. He has continued to wake up but is not back to baseline. Patient appears to have right hemineglect and is not moving his right upper extremity. He has movement of the right lower extremity but it is weaker compared to the left. Patient CT scan of the brain was limited because of motion artifact but grossly negative. He does have a new acute C7 spinous process fracture which I reviewed with Dr. Joshi. Because of patient's difficulty in assessing neurologic status and right arm symptoms he recommends transferring to a trauma facility for neurosurgery evaluation and likely MRI of the cervical spine. Patient does have flexion contracture and anatomy changes because of his neck surgeries, a pediatric size cervical collar has been placed to help limit any movement in the setting of his cervical spine fracture. Patient was also tachycardic at presentation and started on IV fluids which has improved his tachycardia. Blood work shows a white count of 14.4 and a lactate of 4.4, patient is meeting sepsis criteria. Chest x-ray shows no acute process however patient did have copious amounts of secretions from the ET tube after it was placed concerning for possible aspiration. Urinalysis is still pending. 06/12/19 16:35 UA is negative for infection. Because of the copious secretions that were suctioned from patient's trachea he will be covered with broad-spectrum antibiotics of vancomycin and cefepime. Patient case was run by the trauma team advised and who declined to accept because his only known injury currently is the spinous process fracture. I then discussed his care with Dr. Maria Ines JARAMILLOU attending at [facility] who has accepted patient for transfer. Patient's family is now at bedside and in agreement with patient's plan of care and transfer. Laboratory 06/12/19 06/12/19 06/12/19 15:00 15:12 15:12 WBC 14.4 H RBC 4.06 L Hgb 13.0 L Hct 38.9 MCV 96 MCH 32.1 MCHC 33.5 RDW 13.1 Plt Count 438 Total Counted 100 Seg Neutrophils % Not Reportable Seg Neuts % (Manual) 93 H Band Neutrophils % 3 Lymphocytes % Not Reportable Lymphocytes % (Manual) 2 L Monocytes % Not Reportable Monocytes % (Manual) 2 L Eosinophils % Not Reportable Eosinophils % (Manual) 0 Basophils % Not Reportable Basophils % (Manual) 0 Absolute Neutrophils Not Reportable Abs Neuts (Manual) 13.8 H Absolute Lymphocytes Not Reportable Abs Lymphs (Manual) 0.3 L Absolute Monocytes Not Reportable Abs Monocytes (Manual) 0.3 Absolute Eosinophils Not Reportable Absolute Eos (Manual) 0.0 Absolute Basophils Not Reportable Abs Basophils (Manual) 0.0 Platelet Comment ADEQUATE RBC Morph Comment NORMO-CYTIC/CHROMIC PT 14.5 INR 1.12 Carbonic Acid 1.05 HCO3/H2CO3 Ratio 22:1 ABG pH 7.44 ABG pCO2 34.8 L ABG pO2 422.1 H ABG HCO3 23.2 ABG Total CO2 24.2 ABG O2 Saturation 99.8 H ABG Base Excess -0.4 FiO2 80% Sodium Potassium Chloride Carbon Dioxide Anion Gap BUN Creatinine Est GFR ( Amer) Est GFR (Non-Af Amer) Glucose Lactic Acid Calcium Total Bilirubin Direct Bilirubin Neonat Total Bilirubin Neonat Direct Bilirubin Neonat Indirect Bili AST ALT Alkaline Phosphatase Troponin I Total Protein Albumin Urine Color Urine Appearance Urine pH Ur Specific [place] Urine Protein Urine Glucose (UA) Urine Ketones Urine Blood Urine Nitrite Urine Bilirubin Urine Urobilinogen Ur Leukocyte Esterase Urine WBC Amorphous Sediment Urine Ascorbic Acid Urine Opiates Screen Urine Methadone Screen Ur Barbiturates Screen Ur Phencyclidine Scrn Ur Amphetamines Screen U Benzodiazepines Scrn Urine Cocaine Screen U Marijuana (THC) Screen Serum Alcohol 06/12/19 06/12/19 06/12/19 15:12 15:12 15:12 WBC RBC Hgb Hct MCV MCH MCHC RDW Plt Count Total Counted Seg Neutrophils % Seg Neuts % (Manual) Band Neutrophils % Lymphocytes % Lymphocytes % (Manual) Monocytes % Monocytes % (Manual) Eosinophils % Eosinophils % (Manual) Basophils % Basophils % (Manual) Absolute Neutrophils Abs Neuts (Manual) Absolute Lymphocytes Abs Lymphs (Manual) Absolute Monocytes Abs Monocytes (Manual) Absolute Eosinophils Absolute Eos (Manual) Absolute Basophils Abs Basophils (Manual) Platelet Comment RBC Morph Comment PT INR Carbonic Acid HCO3/H2CO3 Ratio ABG pH ABG pCO2 ABG pO2 ABG HCO3 ABG Total CO2 ABG O2 Saturation ABG Base Excess FiO2 Sodium 137.5 Potassium 4.1 Chloride 100 Carbon Dioxide 26 Anion Gap 12 BUN 12 Creatinine 0.47 L Est GFR ( Amer) > 60 Est GFR (Non-Af Amer) > 60 Glucose 154 H Lactic Acid 4.4 H Calcium 9.0 Total Bilirubin 0.5 Direct Bilirubin 0.2 Neonat Total Bilirubin Not Reportable Neonat Direct Bilirubin Not Reportable Neonat Indirect Bili Not Reportable AST 37 ALT 39 Alkaline Phosphatase 144 H Troponin I < 0.012 Total Protein 6.4 Albumin 3.7 Urine Color Urine Appearance Urine pH Ur Specific [place] Urine Protein Urine Glucose (UA) Urine Ketones Urine Blood Urine Nitrite Urine Bilirubin Urine Urobilinogen Ur Leukocyte Esterase Urine WBC Amorphous Sediment Urine Ascorbic Acid Urine Opiates Screen Urine Methadone Screen Ur Barbiturates Screen Ur Phencyclidine Scrn Ur Amphetamines Screen U Benzodiazepines Scrn Urine Cocaine Screen U Marijuana (THC) Screen Serum Alcohol < 10 06/12/19 06/12/19 15:38 15:38 WBC RBC Hgb Hct MCV MCH MCHC RDW Plt Count Total Counted Seg Neutrophils % Seg Neuts % (Manual) Band Neutrophils % Lymphocytes % Lymphocytes % (Manual) Monocytes % Monocytes % (Manual) Eosinophils % Eosinophils % (Manual) Basophils % Basophils % (Manual) Absolute Neutrophils Abs Neuts (Manual) Absolute Lymphocytes Abs Lymphs (Manual) Absolute Monocytes Abs Monocytes (Manual) Absolute Eosinophils Absolute Eos (Manual) Absolute Basophils Abs Basophils (Manual) Platelet Comment RBC Morph Comment PT INR Carbonic Acid HCO3/H2CO3 Ratio ABG pH ABG pCO2 ABG pO2 ABG HCO3 ABG Total CO2 ABG O2 Saturation ABG Base Excess FiO2 Sodium Potassium Chloride Carbon Dioxide Anion Gap BUN Creatinine Est GFR ( Amer) Est GFR (Non-Af Amer) Glucose Lactic Acid Calcium Total Bilirubin Direct Bilirubin Neonat Total Bilirubin Neonat Direct Bilirubin Neonat Indirect Bili AST ALT Alkaline Phosphatase Troponin I Total Protein Albumin Urine Color YELLOW Urine Appearance CLOUDY Urine pH 9.0 Ur Specific [place] 1.013 Urine Protein NEGATIVE Urine Glucose (UA) NEGATIVE Urine Ketones TRACE H Urine Blood NEGATIVE Urine Nitrite NEGATIVE Urine Bilirubin NEGATIVE Urine Urobilinogen NEGATIVE Ur Leukocyte Esterase NEGATIVE Urine WBC RARE Amorphous Sediment 1+ Urine Ascorbic Acid NEGATIVE Urine Opiates Screen NEGATIVE Urine Methadone Screen NEGATIVE Ur Barbiturates Screen NEGATIVE Ur Phencyclidine Scrn NEGATIVE Ur Amphetamines Screen NEGATIVE U Benzodiazepines Scrn NEGATIVE Urine Cocaine Screen NEGATIVE U Marijuana (THC) Screen UNCONFIRMED POSITIVE Serum Alcohol Cervical Spine CT 06/12/19 14:31 IMPRESSION: Minimally displaced fracture of the T7 spinous process. No other fracture or dislocation of the cervical spine is evident on this very limited examination, limited by motion artifact, patient positioning, and obliquity. Chest X-Ray 06/12/19 14:31 IMPRESSION: Tubes and lines in good positioning. No focal infiltrates. Head CT 06/12/19 14:31 IMPRESSION: Extensive patient motion artifact, patient positioning, and obliquity limit examination. Within this limitation, no acute intracranial pathology. EVIDENCE OF ACUTE STROKE: NO. - Vital Signs Vital signs: Temp Pulse Resp BP Pulse Ox 100 06/12/19 15:21 - Laboratory Result Diagrams: 06/12/19 15:12 06/12/19 15:12 Laboratory results interpreted by me: 06/12/19 06/12/19 06/12/19 15:00 15:12 15:12 WBC 14.4 H RBC 4.06 L Hgb 13.0 L Seg Neuts % (Manual) 93 H Lymphocytes % (Manual) 2 L Monocytes % (Manual) 2 L Abs Neuts (Manual) 13.8 H Abs Lymphs (Manual) 0.3 L ABG pCO2 34.8 L ABG pO2 422.1 H ABG O2 Saturation 99.8 H Creatinine 0.47 L Glucose 154 H Lactic Acid Alkaline Phosphatase 144 H Urine Ketones 06/12/19 06/12/19 15:12 15:38 WBC RBC Hgb Seg Neuts % (Manual) Lymphocytes % (Manual) Monocytes % (Manual) Abs Neuts (Manual) Abs Lymphs (Manual) ABG pCO2 ABG pO2 ABG O2 Saturation Creatinine Glucose Lactic Acid 4.4 H Alkaline Phosphatase Urine Ketones TRACE H - EKG Interpretation by Me Additional EKG results interpreted by me: 06/12/19 14:44 Interpreted by myself 1429: Sinus tachycardia, rate 109, normal axis, no STEMI Procedures - Intubation Tracheostomy Time of Intubation: 14:30 Intubation method: Tracheostomy ETT size: 6.5 Breath Sounds after Intubation: Equal Post Intubation Xray: Yes Notes: 06/12/19 16:[address] size 6 Shiley using direct visualization of the tracheostomy site was unsuccessful. A second attempt to place 6.5 ET tube without stylette was successful. Secured in place with tape. Placement confirmed with x-ray, lung sounds, and condensation in the tube. Patient was sedated on IM ketamine that was given by EMS prior to arrival. No immediate complications Critical Care Note - Critical Care Note Total time excluding time spent on procedures (mins): 65 Comments: Critical care time 65 exclusive from separate billable procedures for a patient requiring complex medical decision making, and high potential for clinical deterioration. Time spent obtaining history from patient or surrogate, discussions with consultants, development of treatment plan with patient or surrogate, evaluation of patient's response to treatment, examination of patient, ordering and performing treatments and interventions, ordering and review of laboratory studies, re-evaluation of patient's condition, ordering and review of radiographic studies and review of old charts Discharge - Discharge Clinical Impression: Paralysis of right upper extremity, Right leg weakness, Lactic acidosis C7 cervical fracture Qualifiers: Encounter type: initial encounter Fracture type: closed Fracture morphology: unspecified fracture morphology Fracture alignment: nondisplaced Qualified Code(s): S12.601A - Unspecified nondisplaced fracture of seventh cervical vertebra, initial encounter for closed fracture Closed head injury Qualifiers: Encounter type: initial encounter Qualified Code(s): S09.90XA - Unspecified injury of head, initial encounter Tracheostomy complication Qualifiers: Tracheostomy complication: stoma hemorrhage Qualified Code(s): J95.01 - Hemorrhage from tracheostomy stoma Leukocytosis Qualifiers: Leukocytosis type: bandemia Qualified Code(s): D72.825 - Bandemia Altered mental status Qualifiers: Altered mental status type: coma Coma depth: Dov coma 3-8 Coma timing: in the field (EMT or ambulance) Qualified Code(s): R40.2431 - [place] coma scale score 3-8, in the field [EMT or ambulance] Condition: Stable Disposition: [facility] Referrals: GREG WILKINSON MD [Primary Care Provider] - Follow up as needed
[2019-06-12] MEDS ORDERED: PROPOFOL 1,000 MG/100 ML INFUS..BTL IV PRN (14:49)
--- NOTE | 2019-06-12 15:00 | RADIOLOGY REPORT (SQ) ---
EXAM DESCRIPTION: CT HEAD WITHOUT COMPLETED DATE/TIME: 06/12/2019 2:50 pm REASON FOR STUDY: trauma COMPARISON: None. TECHNIQUE: Axial images acquired through the brain without intravenous contrast. Images reviewed wi th bone, brain and subdural windows. Additional sagittal and coronal reconstructions were generated. Images stored on PACS. All CT scanners at this facility use dose modulation, iterative reconstruction, and/or weight based d osing when appropriate to reduce radiation dose to as low as reasonably achievable (ALARA). [facility]: Dose Right [facility]: CareDose [facility]: Dose Right [facility]: Teradose 4D [facility]: [email or web address] RADIATION DOSE: CT Rad equipment meets quality standard of care and radiation dose reduction techniq ues were employed. CTDIvol: 23.9 mGy. DLP: 553 mGy-cm. mGy. LIMITATIONS: Extensive patient motion artifact, patient positioning, obliquity. FINDINGS: VENTRICLES: Normal size and contour. CEREBRUM: No masses. No hemorrhage. No midline shift. No evidence for acute infarction. Normal gra y/white matter differentiation. No areas of low density in the white matter. CEREBELLUM: No masses. No hemorrhage. No alteration of density. No evidence for acute infarction. EXTRAAXIAL SPACES: No fluid collections. No masses. ORBITS AND GLOBE: No intra- or extraconal masses. Normal contour of globe without masses. CALVARIUM: No fracture. PARANASAL SINUSES: No fluid or mucosal thickening. SOFT TISSUES: No mass or hematoma. OTHER: No other significant finding. IMPRESSION: Extensive patient motion artifact, patient positioning, and obliquity limit examination. Within this limitation, no acute intracranial pathology. EVIDENCE OF ACUTE STROKE: NO. COMMENT: Quality ID # [id number]: Final reports with documentation of one or more dose reduction techniques (e.g., Automated exposure control, adjustment of the mA and/or kV according to patient size, use of iterative reconstruction technique) TECHNICAL DOCUMENTATION: JOB ID: [id number] [employer]- All Rights Reserved Reading location - IP/workstation name: [email or web address]
--- NOTE | 2019-06-12 15:03 | PDOC CONSULTATION ---
Consultation Consult Date: 06/12/19 Attending physician:: EULALIA ZABALA Provider Consulted: GLENDA RUANO Consult reason:: Loss of mechanical airway History of Present Illness Patient complains of: Loss of airway History of Present Illness: CALLIE KELLY is a 54 year old male Who was brought to the emergency department by ground rescue. Apparently earlier today family members found the patient down, having had some collapse, fall, of unclear etiology. When EMS arrived, patient was combative so we received ketamine. Subsequently, the patient was found to be in respiratory distress. It is unclear exactly when his mechanical Jeremías metallic tracheostomy tube was dislodged but he came to the emergency department with no mechanical airway. In the emergency department after Elizabeth attempted to rossy tablish a 6 Shiley tracheostomy tube but was unsuccessful. She was able to get a 6 endotracheal tube into position with adequate oxygenation ventilation. Patient remained hemodynamically stable and was taken to the scanner for further imaging. Patient underwent chest x-ray after tracheal intubation which showed the tip of the endotracheal tube approximately 2 cm proximal to the makenzie. Both lung rob were inflated. 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 Patient has had what appears to be a radical neck dissection, radiation, chronic contracture, and permanent tracheostomy. All medical care received at facility other than [facility]. I spoke with [facility] medical oncology and they have no record of the patient. The patient was at [facility] hospitalized for about a week for left lingular pneumonia under the care of the hospitalist service. We await their arrival of the family for further past medical history. Past Medical History Cardiac Medical History: Reports: Myocardial Infarction - Patient reports history of myocardial infarction, Hyperlipidema, Hypertension, Peripheral Vascular Disease Pulmonary Medical History: Reports: Respiratory Failure - Uses O2 per tracheostomy collar at home Neurological Medical History: Denies: Seizures Endocrine Medical History: Reports: Hypothyroidism Denies: Diabetes Mellitus Type 1, Diabetes Mellitus Type 2, Hyperthyroidism GI Medical History: Reports: Gastroesophageal Reflux Disease Denies: Cirrhosis, Crohn's Disease, Hepatitis, Ulcerative Colitis Musculoskeltal Medical History: Denies: Arthritis, Gout Skin Medical History: Denies: Eczema, Psoriasis Hematology: Denies: Anemia, Bleeding Tendencies Past Surgical History Past Surgical History: As per HPI Past Surgical History: Reports: Vascular Surgery - Stents, Other - Head and neck dissection of malignancy and esophagectomy, tracheostomy Social History Information Source: Emergency Med Personnel Lives with: Family Smoking Status: Former Smoker Frequency of Alcohol Use: Rare Hx Recreational Drug Use: Yes - No recent use Drugs: Marijuana Hx Prescription Drug Abuse: No Past Social History Note: Unable to obtain due to patient being on ventilator Family History Family History: Hypertension Parental Family History Reviewed: No Children Family History Reviewed: No Sibling(s) Family History Reviewed.: No Medication/Allergy Home Medications: Docusate Sodium [Colace 100 mg Capsule] 100 mg PO BID capsule 08/28/18 Fluticasone Propionate [Flonase Nasal Reading 50 Mcg/Reading 16 gm] 2 spray NASL Q12 30 Days #120 sprays 08/28/18 Levothyroxine Sodium [Synthroid 0.05 mg Tablet] 0.05 mg PO Q6AM 30 Days #30 tablet 08/28/18 Metoprolol Tartrate [Lopressor 25 mg Tablet] 12.5 mg PO Q12 08/28/18 Nitroglycerin [Nitrostat 0.4 mg (1/150 Gr) Tabs 25/Bottle] 0.4 mg PO Q5MP PRN 08/28/18 Scopolamine [Transderm-Scop] 1 each TD Q3DAYS #7 patch.td.3 08/28/18 Atorvastatin Calcium [Lipitor 10 mg Tablet] 10 mg PO QHS 05/05/19 Lactulose 30 ml NG DAILYP PRN 05/05/19 Oxycodone HCl 15 mg NG Q4HP PRN 05/05/19 Pantoprazole Sodium [Protonix [address] Packet] 40 mg NG Q6AM 05/05/19 Acetaminophen [Tylenol 325 mg Tablet] 650 mg PO Q4HP PRN 05/06/19 Aspirin [Aspirin 81 mg Chewable Tablet] 81 mg PO DAILY 05/06/19 Acetaminophen [Tylenol 325 mg Tablet] 650 mg GT Q4HP PRN tablet 05/09/19 Guaifenesin [Robitussin Syrup 200 mg/10 ml Ud Cup] 200 mg GT Q6 udc 05/09/19 Ibuprofen [Motrin 800 mg Tablet] 800 mg GT Q6HP PRN tablet 05/09/19 Ipratropium/Albuterol Sulfate [Duoneb 3 ml Ampul] 3 ml NEB RTQ4HP PRN #120 vial.neb 05/09/19 Levofloxacin [Levaquin 750 mg Tablet] 750 mg PO DAILY #4 tablet 05/09/19 Nebulizer [Nebulizer Machine] 1 each ASDIR PRN #1 kit 05/09/19 Allergies/Adverse Reactions: No Known Allergies Allergy (Verified 05/05/19 22:13) Review of Systems ROS unobtainable: Due to endotracheal tube Physical Exam Vital Signs: Intake & Output 06/11/19 06/12/19 06/13/19 06:59 06:59 06:59 Weight 46 kg General appearance: PRESENT: other - Malnourished appearing white male going into CT scanner Head exam: PRESENT: other - Head of the cervical spine Eye exam: PRESENT: other - Unable to complete Mouth exam: PRESENT: other - Poor dentition Neck exam: PRESENT: tracheostomy, other - Evidence of scar right side of neck with a cervical contracture: #6 endotracheal tube positioned into open tracheostomy GI/Abdominal exam: PRESENT: other - PEG tube in position Extremities exam: PRESENT: other - No swelling Musculoskeletal exam: PRESENT: other - Unable to assess due to ketamine Neurological exam: PRESENT: other - Unable to assess due to ketamine Psychiatric exam: PRESENT: other - Unable to assess due to [place] Skin exam: PRESENT: dry Assessment & Plan - Diagnosis (1) Tracheostomy in place Is this a current diagnosis for this admission?: Yes Plan: Impression: Acute collapse and fall, etiology undetermined; loss of mechanical airway reestablishment of tracheostomy using #6 endotracheal tube by the emergency department staff with adequate oxygenation and ventilation at this time. Recommendations: 1. Complete imaging and laboratory evaluation, patient being admitted to hospitalist service for supportive care 2. The current mechanical airway through the permanent tracheostomy opening is functional and should be left in position at this time until entire work-up co mplete. Patient can be maintained on the later and slowly weaned with the 6 tube in position. Once the acute situation is stabilized, and the patient is neurologically, then consideration will be made for mechanical airway replacement. 3. I discussed the above with Dr. Zabala, emergency room physician. (2) Head and neck cancer Is this a current diagnosis for this admission?: Yes (3) Syncope Qualifiers: Syncope type: unspecified Qualified Code(s): R55 - Syncope and collapse Is this a current diagnosis for this admission?: Yes - Time Time Spent: 30 to 50 Minutes Medications reviewed and adjusted accordingly: Yes Anticipated discharge: Home - Inpatient Certification Based on my medical assessment, after consideration of the patient's comorbidities, presenting symptoms, or acuity I expect that the services needed warrant INPATIENT care.: Yes I certify that my determination is in accordance with my understanding of Medicare's requirements for reasonable and necessary INPATIENT services [42 CFR 412.3e].: Yes Medical Necessity: Need for Pain Control - Mechanical airway support
--- NOTE | 2019-06-12 15:04 | RADIOLOGY REPORT (SQ) ---
EXAM DESCRIPTION: CHEST SINGLE VIEW COMPLETED DATE/TIME: 06/12/2019 2:51 pm REASON FOR STUDY: trach placement COMPARISON: Chest films 05/05/2019, 08/27/2018 CT chest 08/28/2018 EXAM PARAMETERS: NUMBER OF VIEWS: One view. TECHNIQUE: Single frontal radiographic view of the chest acquired. RADIATION DOSE: NA LIMITATIONS: Patient's chin overlies the left lung apex. FINDINGS: LUNGS AND PLEURA: No opacities, masses or pneumothorax. No pleural effusion. MEDIASTINUM AND HILAR STRUCTURES: No masses. Contour normal. HEART AND VASCULAR STRUCTURES: Heart normal in size. Normal vasculature. BONES: No acute findings. HARDWARE: Endotracheal tube tip 4 cm above the makenzie. Left-sided PICC line tip superior vena cava. Gastrostomy tube tip in the stomach. OTHER: No other significant finding. IMPRESSION: Tubes and lines in good positioning. No focal infiltrates. TECHNICAL DOCUMENTATION: JOB ID: [id number] [employer]- All Rights Reserved Reading location - IP/workstation name: [email or web address]
--- NOTE | 2019-06-12 15:05 | RADIOLOGY REPORT (SQ) ---
EXAM DESCRIPTION: CT CERVICAL SPINE WITHOUT COMPLETED DATE/TIME: 06/12/2019 2:50 pm REASON FOR STUDY: trauma COMPARISON: None. TECHNIQUE: Axial images acquired through the cervical spine without intravenous contrast. Images re viewed with lung, soft tissue and bone windows. Reconstructed coronal and sagittal MPR images review ed. Images stored on PACS. All CT scanners at this facility use dose modulation, iterative reconstruction, and/or weight based d osing when appropriate to reduce radiation dose to as low as reasonably achievable (ALARA). [facility]: Dose Right [facility]: CareDose [facility]: Dose Right [facility]: Teradose 4D [facility]: Smart [employer] RADIATION DOSE: CT Rad equipment meets quality standard of care and radiation dose reduction techniq ues were employed. CTDIvol: 16.0 mGy. DLP: 303 mGy-cm. mGy. LIMITATIONS: Motion artifact, patient positioning, and obliquity FINDINGS: ALIGNMENT: Anatomic. MINERALIZATION: Normal. VERTEBRAL BODIES: No fractures or dislocation. DISCS: No significant disc disease. FACETS, LATERAL MASSES, POSTERIOR ELEMENTS: Minimally displaced fracture of the T7 spinous process (s eries 201, image 39, series 4, image 32). No dislocation. No acute findings. HARDWARE: None in the spine. VISUALIZED RIBS: No fractures. LUNG APICES AND SOFT TISSUES: Postoperative findings of oral cavity resection and tracheostomy. OTHER: No other significant finding. IMPRESSION: Minimally displaced fracture of the T7 spinous process. No other fracture or dislocatio n of the cervical spine is evident on this very limited examination, limited by motion artifact, chelsea ent positioning, and obliquity. TECHNICAL DOCUMENTATION: JOB ID: [id number] Quality ID # [id number]: Final reports with documentation of one or more dose reduction techniques (e.g., Au tomated exposure control, adjustment of the mA and/or kV according to patient size, use of iterative reconstruction technique) 2010 [employer]- All Rights Reserved Reading location - IP/workstation name: [email or web address]
[2019-06-12 15:31] LABS: ARTERIAL BLOOD BASE EXCESS -0.4 mmol/L; ARTERIAL BLOOD H2CO3 1.05 mmol/L (1.05-1.35); ARTERIAL BLOOD HCO3 23.2 mmol/L (20-24); ARTERIAL BLOOD O2 SATURATION 99.8 % (94-98); ARTERIAL BLOOD PCO2 34.8 mmHg (35-45); ARTERIAL BLOOD PH 7.44 (7.35-7.45); ARTERIAL BLOOD PO2 422.1 mmHg (80-100); ARTERIAL BLOOD TOTAL CO2 24.2 mmol/L (23-27)
[2019-06-12 15:33] LABS: HEMATOCRIT 38.9 % (37.9-51.0); MEAN CORPUSCULAR HEMOGLOBIN 32.1 pg (27.0-33.4); MEAN CORPUSCULAR HGB CONC 33.5 g/dL (32.0-36.0); MEAN CORPUSCULAR VOLUME 96 fl (80-97); PLATELET COUNT 438 10^3/uL (150-450); RED BLOOD COUNT 4.06 10^6/uL (4.35-5.55); RED CELL DISTRIBUTION WIDTH 13.1 % (11.5-14.0); WHITE BLOOD COUNT 14.4 10^3/uL (4.0-10.5)
[2019-06-12 15:38] LABS: ARTERIAL BLOOD FIO2 80%
[2019-06-12 15:38] LABS: INTERNATIONAL RATION (INR) 1.12; PROTHROMBIN TIME 14.5 SEC (11.4-15.4)
[2019-06-12 15:53] LABS: ABSOLUTE LYMPHOCYTES# (MANUAL) 0.3 10^3/uL (0.5-4.7); ABSOLUTE MONOCYTES # (MANUAL) 0.3 10^3/uL (0.1-1.4); BAND NEUTROPHILS % (MANUAL) 3 % (3-5); BASOPHILS % (MANUAL) 0 % (0-2); EOSINOPHILS % (MANUAL) 0 % (0-6); LYMPHOCYTES % (MANUAL) 2 % (13-45); MONOCYTES % (MANUAL) 2 % (3-13); PLATELET COMMENT ADEQUATE; RBC MORPHOLOGY COMMENT NORMO-CYTIC/CHROMIC; SEGMENTED NEUTROPHILS % (MAN) 93 % (42-78); TOTAL CELLS COUNTED 100
[2019-06-12 15:54] LABS: ALBUMIN 3.7 g/dL (3.5-5.0); ALKALINE PHOSPHATASE 144 U/L (38-126); ANION GAP 12 (5-19); ASPARTATE AMINO TRANSFERASE 37 U/L (17-59); BILIRUBIN,DIRECT 0.2 mg/dL (0.0-0.4); BILIRUBIN,TOTAL 0.5 mg/dL (0.2-1.3); BLOOD UREA NITROGEN 12 mg/dL (7-20); CARBON DIOXIDE 26 mmol/L (22-30); CHLORIDE 100 mmol/L (98-107); GLUCOSE 154 mg/dL (75-110); POTASSIUM 4.1 mmol/L (3.6-5.0); TOTAL PROTEIN 6.4 g/dL (6.3-8.2)
[2019-06-12 15:56] LABS: ALCOHOL < 10 mg/dL (NONE DETECTED)
[2019-06-12 16:08] LABS: APPEARANCE,URINE CLOUDY; BILIRUBIN,URINE NEGATIVE (NEGATIVE); GLUCOSE, URINE NEGATIVE (NEGATIVE); KETONES,URINE TRACE mg/dL (NEGATIVE); LEUKOCYTE ESTERASE,URINE NEGATIVE (NEGATIVE); NITRITE,URINE NEGATIVE (NEGATIVE); PROTEIN,URINE NEGATIVE (NEGATIVE); URINE SPECIFIC GRAVITY 1.013; UROBILINOGEN,URINE NEGATIVE mg/dL (<2.0)
[2019-06-12] MEDS ORDERED: RINGERS SOLUTION,LACTATED 1,000 ML IV ONE (16:12)
[2019-06-12 16:30] LABS: ADD MANUAL MICROSCOPIC YES; AMORPHOUS SEDIMENT,UR 1+; COLOR,URINE YELLOW; WBC,URINE RARE /HPF
[2019-06-12 16:32] LABS: URINE AMPHETAMINES SCREEN NEGATIVE; URINE BARBITURATES SCREEN NEGATIVE; URINE BENZODIAZEPINES SCREEN NEGATIVE; URINE COCAINE SCREEN NEGATIVE; URINE MARIJUANA (THC) SCREEN UNCONFIRMED POSITIVE; URINE METHADONE SCREEN NEGATIVE; URINE PHENCYCLIDINE SCREEN NEGATIVE
[2019-06-12] MEDS ORDERED: VANCOMYCIN HCL INJ 1000 MG VIAL IV ONE (16:33)
[2019-06-12] MEDS ORDERED: PIPERACILLIN/TAZOBACTAM 3.375 GM VIAL IV ONE (16:33)
[2019-06-12] MEDS ORDERED: CEFEPIME 1 GM/D5W RTU 1 GM/50 ML RTUPB IV ONE (16:36)
[2019-06-12] MEDS ORDERED: FENTANYL CITRATE INJ/PF 100 MCG/2 ML AMPUL IV ONE (16:42)
[2019-06-12] MEDS ORDERED: FENTANYL CITRATE INJ/PF 100 MCG/2 ML AMPUL ONE (16:42)
[2019-06-12 17:46] VITALS: BP 131/96
--- NOTE | 2019-06-12 17:49 | EKG REPORT ---
SEVERITY:- ABNORMAL ECG - SINUS TACHYCARDIA BORDERLINE RIGHT AXIS DEVIATION NONSPECIFIC T ABNORMALITIES, DIFFUSE LEADS : Confirmed by: Steve Higgins MD 12-Jun-2019 17:48:24
== END 2019-06-12 17:56 | disposition short-term general hospital (02) ==
LOC: ER 14:09
DX: S12.601A Unspecified nondisplaced fracture of seventh cervical vertebra, initial encounter for closed fracture (principal); S09.90XA Unspecified injury of head, initial encounter; D72.825 Bandemia; R40.2431 Glasgow coma scale score 3-8, in the field [EMT or ambulance]; E87.2 Acidosis; G83.89 Other specified paralytic syndromes; M62.81 Muscle weakness (generalized); W19.XXXA Unspecified fall, initial encounter; Z87.891 Personal history of nicotine dependence; I10 Essential (primary) hypertension; Z99.81 Dependence on supplemental oxygen
CPT/HCPCS: 93005; 99291; 96361; 96365; 96368; 36415; 87040; 87086; 82962; 80307 ×2; 82803; 85025; 85610; 87077; 80053; 81001; 84484; 83605; 71045; 70450; 72125; 94660; 93010; 36600; J3010; J2704; J7030; J7120; J3370; J0692; 87186